=== PATIENT | male | born 1975 | race Caucasian/White ===

== ENCOUNTER 2023-08-22 19:47 | Emergency (ER) | payer OTHER, BC, SELFPAY ==
[2023-08-22 20:13] VITALS: BP 181/104; PULSE 81; RESP 15; TEMP 36.7; O2SAT 96; BMI 31.2
--- NOTE | 2023-08-22 21:21 | ED_ITS ---
HPI - Skin/Abscess/Foreign Bdy General Chief complaint: Skin/Abscess/Foreign Body Stated complaint: Infection R shoulder Time Seen by Provider: 08/22/23 21:10 History of Present Illness HPI narrative: This 48-year-old male comes in with a painful reddish area on his right anterior shoulder typical of a subcutaneous abscess. He states that this began to flare up in the past couple days. He works as a commissioned police officer and noted that his vest was irritating this area also. He does not report any fevers. There is not been any drainage from it. Related Data Home Medications Medication Instructions Recorded Confirmed buspirone 7.5 mg tablet 7.5 mg PO BID 08/22/23 08/22/23 chlorthalidone 25 mg tablet 25 mg PO DAILY 08/22/23 08/22/23 lisinopril 20 mg tablet 20 mg PO DAILY 08/22/23 08/22/23 sertraline 100 mg tablet mg PO 08/22/23 Allergies Allergy/AdvReac Type Severity Reaction Status Date / Time Penicillins AdvReac Verified 08/22/23 20:16 Review of Systems Status of ROS: Reports: 10 or more systems reviewed and unremarkable except as noted in History and below Narrative: Constitutional: No fevers, no weight gain or loss. Eyes: No discharge. No vision changes. HENT: No congestion, no sore throat, no ear pain. Cardiovascular: No chest pain, no palpitations. Respiratory: No shortness of breath, no wheezes, no cough. Gastrointestinal: No abdominal pain, no vomiting, no diarrhea. Genitourinary: No dysuria, no hematuria. Musculoskeletal: Normal range of motion. Skin: No rashes, no pruritis. Neurological: No dizziness, weakness, sensory change, speech change. Endo/Heme/Allergies: No bruising or bleeding. No polydipsia. Pysch: no suicidality, no anxiety, no insomnia. All other systems reviewed and are negative. Exam Narrative: Exam Narrative: Constitutional: Well-developed, well-nourished, no acute distress. HEENT: Normocephalic, atraumatic. Neck: Normal range of motion. Nontender. Supple. Heart: Intact distal pulses. Lungs: No chest discomfort. No wheezes, rhonchi, or rales. Abdomen: Nontender. Back: Normal range of motion. Extremities: Normal range of motion. No injury. Skin: Intact. No rash. Warm. No erythema or pallor. Area of erythema with swelling about 5 cm in diameter on the anterior aspect of his right clavicle. Neurologic: No altered sensation. No weakness. Alert and oriented. Psychiatric: No suicidality. No anxiety or depression. No insomnia. Nursing notes and vitals signs are reviewed. Const: Vital Signs, click to edit/add: Vital Signs - 24 hr 08/22/23 20:13 Temperature 98.0 F Pulse Rate [Pulse Oximeter] 81 Respiratory Rate 15 Blood Pressure [Ri ght Upper Arm] 181/104 H Pulse Oximetry 96 Oxygen Delivery Me thod Room Air Course Vital Signs Vital signs: Initial Vital Signs Temperature 98.0 F 08/22/23 20:13 Temperature Source Temporal Artery Scan 08/22/23 20:13 Pulse Rate 81 08/22/23 20:13 Respiratory Rate 15 08/22/23 20:13 Blood Pressure 181/104 H 08/22/23 20:13 Blood Pressure Mean 129 H 08/22/23 20:13 Blood Pressure Position Sitting 08/22/23 20:13 Pulse Oximetry 96 08/22/23 20:13 Oxygen Delivery Method Room Air 08/22/23 20:13 Vital Signs Temperature 98.0 F 08/22/23 20:13 Pulse Rate 81 08/22/23 20:13 Respiratory Rate 15 08/22/23 20:13 Blood Pressure 181/104 H 08/22/23 20:13 Pulse Oximetry 96 08/22/23 20:13 Oxygen Delivery Method Room Air 08/22/23 20:13 Temperature 98.0 F 08/22/23 20:13 Pulse Rate 81 08/22/23 20:13 Respiratory Rate 15 08/22/23 20:13 Blood Pressure 181/104 H 08/22/23 20:13 Pulse Oximetry 96 08/22/23 20:13 Oxygen Delivery Method Room Air 08/22/23 20:13 MDM - Skin/Abscess/Foreign Bdy MDM Narrative Medical decision making narrative: This patient comes in with a subcutaneous infection as described above. I did use bedside ultrasound to evaluate for a drainable abscess but no such images were obtained. I did prescribe Keflex from the [employer] machine. Discharge Plan Discharge Clinical Impression: Cellulitis Patient Disposition: Home, Self-Care Condition: Unchanged Additional Instructions: Take medication as prescribed. Use [id number] medicines also as needed and directed. Follow up with MD return if worsening. Prescriptions: No Action lisinopril 20 mg tablet 20 mg PO DAILY sertraline 100 mg tablet PO chlorthalidone 25 mg tablet 25 mg PO DAILY buspirone 7.5 mg tablet 7.5 mg PO BID Stand Alone Forms: [employer] Info Instructions
[2023-08-22 21:50] VITALS: BP 165/84; PULSE 79; RESP 18; TEMP 36.7; O2SAT 96
[2023-08-22 21:51] VITALS: BP 165/84; PULSE 79; RESP 18; TEMP 36.7
== END 2023-08-22 21:51 | disposition home or self-care (01) ==
LOC: ED 21:33
PROVIDERS: Emergency Provider Emergency Medicine Emergency Medical Services
DX: L03.113 Cellulitis of right upper limb (principal)
CPT/HCPCS: 99283; 99284

== ENCOUNTER 2023-12-26 11:36 | Emergency (ER) | payer OTHER, BC, SELFPAY ==
[2023-12-26 11:43] VITALS: BP 159/106; PULSE 67; RESP 20; TEMP 36.1; O2SAT 97; BMI 31.2
--- NOTE | 2023-12-26 12:00 | ED.FALL ---
HPI - Fall General Chief Complaint: Fall/Minor Trauma Stated Complaint: back pain Time Seen by Provider: 12/26/23 11:47 History of Present Illness HPI Narrative: This 48-year-old male comes in with back pain. He fell jumping from his pontoon to the dock 3 days ago and has severe pain in the mid to low back radiating to the left side. He did hit his head but did not have loss of consciousness. He went to [facility] 2 hours prior to arrival here and an x-ray there showed an L1 transverse process fracture. He saw physician's leasing assistant there who offered steroids for pain management. He states that he is not tolerating he has pain well. He does not report any radiating pain, numbness, or tingling. Related Data Home Medications ?Medication ?Instructions ?Recorded ?Confirmed buspirone 7.5 mg tablet 7.5 mg PO BID 08/22/23 12/26/23 chlorthalidone 25 mg tablet 25 mg PO DAILY 08/22/23 12/26/23 lisinopril 20 mg tablet 20 mg PO DAILY 08/22/23 12/26/23 sertraline 100 mg tablet 100 mg PO Q24H 08/22/23 12/26/23 Previous Rx's ?Medication ?Instructions ?Recorded cyclobenzaprine 10 mg tablet 10 mg PO TID #15 tabs 12/26/23 ketorolac 10 mg tablet 10 mg PO Q8H 5 days #15 tabs 12/26/23 oxycodone 5 mg capsule 5 mg PO Q6H PRN pain #30 caps 12/26/23 Allergies Allergy/AdvReac Type Severity Reaction Status Date / Time Penicillins AdvReac Verified 12/26/23 11:50 Review of Systems Status of ROS: Reports: 10 or more systems reviewed and unremarkable except as noted in History and below Narrative: Constitutional: No fevers, no weight gain or loss. Eyes: No discharge. No vision changes. HENT: No congestion, no sore throat, no ear pain. Cardiovascular: No chest pain, no palpitations. Respiratory: No shortness of breath, no wheezes, no cough. Gastrointestinal: No abdominal pain, no vomiting, no diarrhea. Genitourinary: No dysuria, no hematuria. Musculoskeletal: Back pain as described above with decreased range of motion due to pain. Skin: No rashes, no pruritis. Neurological: No dizziness, weakness, sensory change, speech change. Endo/Heme/Allergies: No bruising or bleeding. No polydipsia. Pysch: no suicidality, no anxiety, no insomnia. All other systems reviewed and are negative. PFSH [facility] Social History Smoking Status: Never smoker Second hand tobacco smoke exposure: No How often do you have a drink containing alcohol: never AUDIT-C Alcohol total score: 0 Non-prescribed substance use: denies use Exam Narrative: Exam Narrative: Constitutional: Well-developed, well-nourished, no acute distress. HEENT: Normocephalic, atraumatic. Neck: Normal range of motion. Nontender. Supple. Heart: Intact distal pulses. Lungs: No chest discomfort. No wheezes, rhonchi, or rales. Abdomen: Nontender. Back: Tenderness at L1 where previous x-ray showed a fracture of the transverse process on the left side. Extremities: Normal range of motion. No injury. Skin: Intact. No rash. Warm. No erythema or pallor. Neurologic: No altered sensation. No weakness. Alert and oriented. Psychiatric: No suicidality. No anxiety or depression. No insomnia. Nursing notes and vitals signs are reviewed. Const: Vital Signs, click to edit/add: Vital Signs - 24 hr 12/26/23 11:43 Temperature 96.9 F L Pulse Rate [Right Pulse Oximeter] 67 Respiratory Rate 20 Blood Pressure [Ri ght Upper Arm] 159/106 H Pulse Oximetry 97 Oxygen Delivery Me thod Room Air Course Vital Signs Vital signs: Initial Vital Signs Temperature 96.9 F L 12/26/23 11:43 Temperature Source Temporal Artery Scan 12/26/23 11:43 Pulse Rate 12/26/23 11:43 Pulse Rhythm Regular 12/26/23 11:43 Respiratory Rate 12/26/23 11:43 Blood Pressure 159/106 H 12/26/23 11:43 Blood Pressure Mean 123 H 12/26/23 11:43 Blood Pressure Position Sitting 12/26/23 11:43 Pulse Oximetry 97 12/26/23 11:43 Oxygen Delivery Method Room Air 12/26/23 11:43 Vital Signs Temperature 96.9 F L 12/26/23 11:43 Pulse Rate 67 12/26/23 11:43 Respiratory Rate 20 12/26/23 11:43 Blood Pressure 159/106 H 12/26/23 11:43 Pulse Oximetry 97 12/26/23 11:43 Oxygen Delivery Method Room Air 12/26/23 11:43 Temperature 96.9 F L 12/26/23 11:43 Pulse Rate 67 12/26/23 11:43 Respiratory Rate 20 12/26/23 11:43 Blood Pressure 159/106 H 12/26/23 11:43 Pulse Oximetry 97 12/26/23 11:43 Oxygen Delivery Method Room Air 12/26/23 11:43 MDM - Fall MDM Narrative Medical decision making narrative: This patient comes in essentially for pain relief as he was recently diagnosed with a fracture of the transverse process of L1 on the left side. He was offered a steroid which he declined. He states that he has been taking ibuprofen without any relief. He states that he has had Magnolia in the past and this did not seem to work very well for him. He is not normally on any pain medicines. The patient did receive an intramuscular injection of morphine 10 mg here. I did provide prescriptions for Toradol, Percocet, and Flexeril. He understands that he will need to follow-up with his primary physician for ongoing pain management. Patient does have a brace for his back. Discharge Plan Discharge Clinical Impression: Closed T1 fracture Patient Disposition: Home w/ Parent or Adult Condition: Unchanged Additional Instructions: Take medication as prescribed and needed. Activity as tolerated. Follow up with primary physician for ongoing pain management. Return if worsening. Prescriptions: New cyclobenzaprine 10 mg tablet 10 mg PO TID Qty: 15 2RF ketorolac 10 mg tablet 10 mg PO Q8H 5 Days Qty: 15 0RF oxycodone 5 mg capsule 5 mg PO Q6H PRN (Reason: pain) Qty: 30 0RF No Action lisinopril 20 mg tablet 20 mg PO DAILY sertraline 100 mg tablet 100 mg PO Q24H chlorthalidone 25 mg tablet 25 mg PO DAILY buspirone 7.5 mg tablet 7.5 mg PO BID Follow Up/Referrals: Provider,Not a Local [Primary Care Provider] - Stand Alone Forms: [employer] Info Instructions
[2023-12-26] MEDS: MORPHINE 10 MG/ML inj IM (12:24)
--- NOTE | 2023-12-26 14:47 | ED.NURSE ---
Pt's Gloria called due to issue filling rx at [facility] [address] in [place]. Contacted [facility] pharmacy, they were unable to fill rx for pt and unwilling to transfer the rx to a different [facility] store for the pt. Spoke with MD Terry and MD Terry sent the rx script to [facility] on in [place].
== END 2023-12-26 12:50 | disposition home or self-care (01) ==
LOC: ED 12:18
PROVIDERS: Emergency Provider Emergency Medicine Emergency Medical Services
DX: S32.019A Unspecified fracture of first lumbar vertebra, initial encounter for closed fracture (principal); W17.89XA Other fall from one level to another, initial encounter
CPT/HCPCS: 96372; 99283; 99284; J2270

== ENCOUNTER 2024-01-03 10:01 | Outpatient (CLI) | payer OTHER, BC, SELFPAY | END 2024-01-03 10:02 | disposition home or self-care (01) | LOC: LKVREF 10:05 | PROVIDERS: Visit Provider Family Medicine | DX: I10 Essential (primary) hypertension (principal) | CPT/HCPCS: 80053; 80061 ==

== ENCOUNTER 2024-01-11 10:26 | Outpatient (RCR) | payer OTHER, BC, SELFPAY | END 2024-04-19 09:50 | disposition home or self-care (01) | PROVIDERS: Visit Provider Family Medicine | DX: S32.009A Unspecified fracture of unspecified lumbar vertebra, initial encounter for closed fracture (principal); M54.50 Low back pain, unspecified; Z51.89 Encounter for other specified aftercare | CPT/HCPCS: 97110; 97161 ==

== ENCOUNTER 2024-02-03 11:37 | Outpatient (CLI) | payer OTHER, SELFPAY | END 2024-02-03 11:38 | disposition home or self-care (01) | LOC: NFLDREF 02-09 06:42 | PROVIDERS: PCP Family Medicine; Visit Provider Family Medicine | DX: Z00.00 Encounter for general adult medical examination without abnormal findings (principal); I10 Essential (primary) hypertension; E11.9 Type 2 diabetes mellitus without complications; E87.6 Hypokalemia | CPT/HCPCS: 82043; 82570 ==

== ENCOUNTER 2024-07-09 16:28 | Outpatient (CLI) | payer OTHER, SELFPAY | END 2024-07-09 16:29 | disposition home or self-care (01) | LOC: LKVREF 16:28 | PROVIDERS: PCP Family Medicine; Visit Provider Family Medicine | DX: Z12.5 Encounter for screening for malignant neoplasm of prostate (principal); Z13.220 Encounter for screening for lipoid disorders | CPT/HCPCS: 80061; G0103 ==

== ENCOUNTER 2024-07-13 09:15 | Outpatient (CLI) | payer OTHER, SELFPAY | END 2024-07-13 09:16 | disposition home or self-care (01) | LOC: NFLDREF 07-14 03:35 | PROVIDERS: PCP Family Medicine; Referring Provider Family Medicine; Visit Provider Family Medicine | DX: E87.6 Hypokalemia (principal) | CPT/HCPCS: 84132 ==

== ENCOUNTER 2024-07-21 14:23 | Emergency (ER) | payer OTHER, SELFPAY ==
--- OUTSIDE RECORDS SUMMARY | 2024-07-21 14:25 | XMS_ITS | Encounter Summary ---
Author Organization [facility] Address [address] [place] [id number] Care Team Providers Care Bread Slicer Machine Name Role Phone Doctor, None Primary Care Provider Unavailabl Tristin Booker MD Primary Care Provider Justine Sylvester PA-C Primary Care Pr ovider Justine Sylvester PA-C Unavailable Eron Sarmiento MD Primary Care Provider Eron Sarmiento MD Unavailable Justine Sylvester PA-C Unavailable Eron Sarmiento MD Unavailable [phone] Eron Sarmiento MD Unavailable Kamar Valente MD Unavailable [phone] Mike Crabtree MD Primary Care Provider + Justine Sylvester PA-C Unavailable Kamar Valente MD Unavailable [phone] Eron Sarmiento MD Unavailable Lalo Wiley MD Primary Care Provider Chiquita Oates MD Unavailable Encounter Details Date Type Department Care Team (Late st Contact Info) Description 03/29/2010 MyC Medical Advice [facility] [id number] [place] [phone] Tristin De La Fuente MD [address] [place] [phone] Social History Tobacco Use Types Packs/Day Years Used Date Smoking Tobacco: Never Alcohol Use Standard Drinks/Week Comments Yes 0 (1 standard drink = 0.6 oz pur e alcohol) socially Sex and Gender Information Value Date Recorded Sex Assigned at Not on file 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 Gender Identity Not on file Sexual Orientation Not on file Occupation Industry Job Start Date Job End Date Not on file Not on file Not on file Not on file documented as of this encounter Plan of Treatment Not on file documented as of this encounter Visit Diagnoses Not on filedocumented in this encounter Additional Health Concerns Infection Onset Date Last Indicated Resolved Time 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 12/11/2021 documented as of this encounter Care Teams Bread Slicer Machine Relationship Specialty Start Date End Date Doctor, Catherine, PCP - General 07/14/01 10/02/10 Tristin De La Fuente MD PCP - General Family Practice 10/03/10 11/01/13 Justine Sylvester PA-C [id number] [place] [address] PCP - General Physician Knitter Helper 11/02/13 07/06/18 Justine Sylvester PA-C [address] [place] [address] PCP - Assigned PCP 11/18/13 07/01/18 [place] [address] [place] [address] PCP - General Family Practice 07/07/18 09/17/19 Eron Sarmiento MD [address] [place] [address] PCP - Assigned PCP 07/02/18 08/01/18 Mike Crabtree MD [address] [id number] PCP - General Family Practice 09/18/19 12/07/21 Lalo Wiley MD [facility] [address] [place] [address] PCP - General Family Medicine 12/08/21 Justine Sylvester PA-C [address] [place] [address] Assigned PCP 11/18/13 07/01/18 Eron Sarmiento MD [address] [place] [place] [address] Assigned PCP 07/02/18 07/29/18 Eron Sarmiento MD [address] [place] [place] [address] Assigned PCP 07/30/18 07/14/19 Kamar Valente MD [address] [phone] Assigned PCP 07/15/19 12/29/19 Justine Sylvester PA-C [address] [place] [place] [address] Assigned PCP 12/30/19 03/08/20 Kamar Valente MD [address] [place] [phone] Assigned PCP 03/09/20 11/01/20 Eron Sarmiento MD [address] [place] [address] Assigned PCP 11/02/20 01/01/22 Chiquita Oates MD [facility], AGNIESZKA Rosen [address] [place] [address] Assigned Surgical Provider 12/26/21 06/22/23 documented as of this encounter
--- OUTSIDE RECORDS SUMMARY | 2024-07-21 14:25 | XMS_ITS | Clinical Summary ---
Author Organization [facility] Address [address] [place] [address] Care Team Providers Care Bow Tacker Name Role Phone Lalo Wiley MD Primary Care Provider [phone] Allergies Active Allergy Reactions Criticality Noted Date Comments Penicillins Swelling 05/02/2002 Throat swelling Medications Fexofenadine HCl (JOESPH PO) Take 180 mg by mouth daily Active chlorthalidone (HYGROTON) 25 MG tabletIndications :Essential hypertension with goal blood pressure less than 140/90 TAKE ONE TABLET BY MOUTH DAILY 90 tablet 0 Active lisinopril (ZESTRIL) 20 MG tabletIndications :Essential hypertension with goal blood pressure less than 140/90 TAKE ONE TABLET BY MOUTH DAILY 90 tablet 0 Active sertraline (ZOLOFT) 25 MG tabletIndications :Anxiety TAKE ONE TABLET BY MOUTH DAILY 90 tablet 0 Active buPROPion (WELLBUTRIN) 75 MG tabletIndications :Anxiety Take 2 tablets (150 mg) by mouth 2 times daily 120 tablet 0 Active acetaminophen (TYLENOL) 325 MG tabletIndications :MRSA infection Take 3 tablets (975 mg) by mouth 3 times daily 180 tablet 2 Active metFORMIN (GLUCOPHAGE) 500 MG tabletIndications :MRSA infection Take 1 tablet (500 mg) by mouth 2 times daily (with meals) 180 tablet 2 Active senna-docusate (SENOKOT-S/STEPAN LACE) 8.6-50 MG tabletIndications :MRSA infection Take 1 tablet by mouth 2 times daily 20 tablet 2 Active ketorolac (TORADOL) 10 MG tabletIndications :MRSA infection Take 1 tablet (10 mg) by mouth every 6 hours as needed for moderate pain 20 tablet 2 Active oxyCODONE (ROXICODONE) 5 MG tabletIndications :Abscess of arm, right Take 1-2 tablets (5-10 mg) by mouth every 6 hours as needed for pain 20 tablet 2 Active oxyCODONE (ROXICODONE) 5 MG tabletIndications :MRSA infection Take 1-2 tablets (5-10 mg) by mouth every 4 hours as needed for moderate to severe pain 12 tablet 2 Active Active Problems Problem Noted Date Diagnosed Date MRSA infection 12/12/2021 Hypokalemia 12/10/2021 Axillary abscess 12/10/2021 Hyperglycemia 12/10/2021 Cellulitis of right axilla 12/10/2021 Anxiety 03/07/2017 Hypertension goal BP (blood pressure) < 140/90 0 12/13/2012 Hyperlipidemia with target LDL less than 130 Overview (03/31/2015): Diagnosis updated by automated process. Provider to review and confirm. Impaired fasting glucose 03/24/2010 Resolved Problems Problem Noted Date Diagnosed Date Resolved Date HTN (hypertension) 02/27/2014 8 Cervical pain 04/26/2012 05/29/2012 Dyslipidemia 2010 10/03/2010 Immunizations Name Administration Dates Next Due Influenza (IIV3) PF 02/26/2017,04/14/2012 Influenza Vaccine >6 months,quad, PF 05/29/2018, 02/28/2013 Influenza Vaccine, 6+MO IM ( QUADRIVALENT W/PRESERVATIVES) 03/14/2015 TD,PF 7+ (Tenivac) 01/06/1998 TDAP Vaccine (Boostrix) 2010 Family History Medical History Relation Comments C.A.D. Father Family History Negative Father Hypertension Father Family History Negative Mother Cancer - colorectal No family hx of Diabetes No family hx of Prostate Cancer No family hx of Relation Status Comments Father Alive Mother Alive Social History Tobacco Use Types Packs/Day Years Used Date Smoking Tobacco: Never Smokeless Tobacco: Former Snuff Quit: 06/13/2009 Tobacco Cessation:Counseling Given: Yes Alcohol Use Standard Drinks/Week Comments Yes 0 (1 standard drink = 0.6 oz pur e alcohol) socially PHQ-2 Answer Date Recorded PHQ-2 Score 0 03/27/2018 Adolescent Education Answer Date Record ed Getting School Help Needed Not on file 03/05 Sex and Gender Information Value Date Recorded Sex Assigned at Not on file 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 Gender Identity Not on file Sexual Orientation Not on file Occupation Industry Job Start Date Job End Date Not on file Not on file Not on file Not on file Last Filed Vital Signs Vital Sign Reading Time Taken Comments Blood Pressure 146/98 12/30/2021 11:07 AM CDT Pulse 80 12/30/2021 11:07 AM CDT Temperature 36.9 C (98.4 F) 12/13/2021 2:47 PM CDT Respiratory Rate 16 12/30/2021 11:07 AM CDT Oxygen Saturation 96% 12/30/2021 11:07 AM CDT Inhaled Oxygen Concentration - - Weight 118.4 kg (261 lb) 12/30/2021 11:07 AM CDT Height 190.5 cm (6' 3) 12/30/2021 11:07 AM CDT Body Mass Index 32.62 12/30/2021 11:07 AM CDT Plan of Treatment Health Maintenance Due Date Last Done Comments ADVANCE CARE PLANNING 1976 ANNUAL REVIEW OF HM ORDERS 1976 CT COLONOGRAPHY 1976 FIT 1976 FLEX SIG 1976 sDNA (Cologuard) 1976 COLONOSCOPY 1986 COLORECTAL CANCER SCREENING 1986 HEPATITIS C SCREENING 1994 HEPATITIS B IMMUNIZATION (1 of 3 - 19+ 3-dose series) 1995 MICROALBUMIN 01/03/2018 01/03/2017, 05/2015, 01/20/2015, Additional history exists LIPID 03/27/2019 03/27/2018, 11/2016, 01/29/2016, Additional history exists YEARLY PREVENTIVE VISIT 03/11/2022 03/11/20 21, 03/27/2018, 01/03/2017, Additional history exists BMP 12/13/2022 12/13/2021, 11/27, 12/11/2021, Additional history exists COVID-19 Vaccine ( - season) 2024 INFLUENZA VACCINE (#1) 2024 9, 03/03/2019, 05/29/2018, Additional history exists PHQ-2 (once per calendar year) 2024 05/29/2018, 03/27/2018, 01/03/2017, Additional history exists GLUCOSE 12/13/2024 12/13/2021, 11/27, 12/13/2021, Additional history exists ZOSTER IMMUNIZATION (1 of 2) 2026 DTAP/TDAP/TD IMMUNIZATION (4 - Td or Tdap) 03/11/2031 03/11/2021, 2010, 01/06/1998, Additional history exists RSV VACCINE (1 - 1-dose 75+ series) 2051 HIV SCREENING Completed 03/27/2018 HPV IMMUNIZATION Aged Out No longer e ligible based on patient's age to complete this topic MENINGITIS IMMUNIZATION Aged Out No l onger eligible based on patient's age to complete this topic Pneumococcal Vaccine: Pediatrics (0 to 5 Years) and At-Risk Patients (6 to 49 Years) Aged Out No longer eligible based on patient's age to complete this topic RSV MONOCLONAL ANTIBODY Aged Out No l onger eligible based on patient's age to complete this topic Procedures Procedure Name Priority Date/Time Associated Diagnosis Comments GLUCOSE BY METER Routine 12/13/2021 12:3 1 PM CDT BASIC METABOLIC PANEL Routine 12/13/2021 6:57 AM CDT HIV ANTIGEN ANTIBODY COMBO Routine 03/27/2018 2:19 PM CDT Screening for HIV (human immunodeficiency virus) LIPID PROFILE Routine 03/27/2018 2:19 PM CDT Routine general medical examination at a health care facility ALBUMIN RANDOM URINE QUANTITATIVE Routine 01/03/2017 3:15 PM CDT Essential hypertension with goal blood pressure less than 140/90 from Last 3 Months or Most Recently Relevant to Health Maintenance Results * (ABNORMAL) Glucose by meter (12/13/2021 12:31 PM CDT) GLUCOSE BY METER POCT 211(H) 70 - 99 mg/dL 12/13/2021 12:39 PM CDT [facility] Blood, Capillary BLOOD SPECIMEN / Unknown 12/13/2021 12:31 PM CDT 12/13/2021 12:39 PM CDT us Italo Rossamna DO LAB - BEAKER POCT Final Result [facility] Acute Care Lab [address] Lab (1st floor, no room number) [place] [address], [facility] [phone] * (ABNORMAL) Basic metabolic panel (12/13/2021 6:57 AM CDT) Pathologist [facility] Sodium 138 133 - 144 mmol/L 12/13/2021 7:56 AM CDT LABORATORY Potassium 3.9 3.4 - 5.3 mmol/L 12/13/2021 7:56 AM CDT LABORATORY Chloride 102 94 - 109 mmol/L 12/13/2021 7:56 AM CDT LABORATORY Carbon Dioxide (CO2) 33(H) 20 - 32 mmol/L 12/13/2021 7:56 AM CDT LABORATORY Anion Gap 3 3 - 14 mmol/L 12/13/2021 7:56 AM CDT LABORATORY Urea Nitrogen 13 7 - 30 mg/dL 12/13/2021 7:56 AM CDT LABORATORY Creatinine 0.97 0.66 - 1.25 mg/dL 12/13/2021 7:56 AM CDT LABORATORY Calcium 8.9 8.5 - 10.1 mg/dL 12/13/2021 7:56 AM CDT LABORATORY Glucose 241(H) 70 - 99 mg/dL 12/13/2021 7:56 AM CDT LABORATORY GFR Estimate >90 >60 mL/min/1.7 3m2 12/13/2021 7:56 AM CDT LABORATORY Comment:Effective April 302020 eGFRcr in adults is calculated using the 2020 CKD-EPI creatinine equation which includes age and gender (Gonzalo et al., NEJM, DOI: 10.1056/MHHGlq2095333) Blood STRUCTURE OF LEFT UPPER LIMB / Unknown Venipuncture / Unknown 12/13/2021 6:57 AM CDT 12/13/2021 7:24 AM CDT us Yasemin White PA-C LAB - BLOOD ORDERABL ES Final Result [facility] Acute Care Lab [address] Lab (1st floor, no room number) [place] [address], [facility] [phone] * HIV Screening (03/27/2018 2:19 PM CDT) HIV Antigen Antibody Combo Nonreactive NR^Nonrea ctive 03/29/2018 8:57 AM CDT [facility] Comment:HIV-1 p24 Ag & HIV-1 /HIV-2 Ab Not Detected Blood specimen (specimen) 03/27/2018 2:19 PM CDT 03/27/2018 2:20 PM CDT us Eron Sarmiento MD LAB - BLOOD ORDERABLES Final Result [facility] [address] [place], [place] [id number] [place] [address] * (ABNORMAL) Lipid Profile (Chol, Trig, HDL, LDL calc) (03/27/2018 2:19 PM CDT) Cholesterol 160 <200 mg/dL 03/28/2018 1:54 PM CDT [facility] Triglycerides 158(H) <150 mg/dL 03/28/2018 1:54 PM CDT [facility] Comment: Borderline high: 150-199 mg/dl High: 200-499 mg/dl Very high: >499 mg/dl Fasting specimen HDL Cholesterol 46 >39 mg/dL 8 1:54 PM CDT [facility] LDL Cholesterol Calculated 82 <100 mg/dL 03/28/2018 1:54 PM CDT [facility] Comment:Desirable: <100 mg/d l Non HDL Cholesterol 114 <130 mg/dL 03/28/2018 1:54 PM CDT [facility] Blood specimen (specimen) 03/27/2018 2:19 PM CDT 03/27/2018 2:20 PM CDT us Eron Sarmiento MD LAB - BLOOD ORDERABLES Final Result [facility] [address] [place] [address] * Albumin Random Urine Quantitative (01/03/2017 3:15 PM CDT) Creatinine Urine 173 mg/dL [facility] Albumin Urine mg/L 7 mg/L [facility] Albumin Urine mg/g Cr 4.19 0 - 17 mg/g Cr [facility] Urine specimen (specimen) 01/03/2017 3:15 PM CDT 01/03/2017 3:20 PM CDT us Justine Sylvester PA-C LAB - URINE ORDE RABLES Final Result [facility] [address] [address], [facility] [phone] from Last 3 Months or Most Recently Relevant to Health Maintenance Additional Health Concerns Infection Onset Date Last Indicated 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 12/11/2021 Insurance [employer] [place] [place] [facility] [employer] [place] [facility] [employer] Advance Directives For more information, please contact: [phone] * Full Code (Latest Code Status on File) Date Activated Date Inactivated Comments 12/10/2021 6:49 PM 12/13/2021 5:19 PM All basic an d advanced life-sustaining interventions are performed as appropriate Question Answer Comments Code status determined by: Discussion with curly nt/ legal decision maker Care Teams Bow Tacker Relationship Specialty Start Date End Date Lalo Wiley MD [facility] [address] [address] PCP - General Family Medicine 12/08/21
--- OUTSIDE RECORDS SUMMARY | 2024-07-21 14:25 | XMS_ITS | Referral Summary ---
Author Organization [facility] Address [address] [place] [address] Care Team Providers Care Lawn Sprinkler Servicer Name Role Phone None, Md Unavailable Unavailable Allergies Active Allergy Reactions Criticality Noted Date Comments Penicillins Anaphylaxis 07/19/2017 Throat swelling Medications oxyCODONE, immediate release, (ROXICODONE) 5 mg oral tablet Take 5 mg by mouth every 6 (six) hours as needed. Active escitalopram oxalate (LEXAPRO) 20 mg oral tablet Take 20 mg by mouth once daily. Active chlorthalidone (HYGROTON) 25 mg oral tablet Take 25 mg by mouth once daily. Active lisinopril (PRINIVIL) 20 mg oral tablet Take 20 mg by mouth once daily. Active FEXOFENADINE HCL (JOESPH ORAL) Take by mouth. Active ranitidine (ZANTAC) 150 mg oral tablet Take 150 mg by mouth Twice a Day. Active oxyCODONE-aceta minophen (PERCOCET) 5-325 mg oral tablet Take 1-2 tablets by mouth every 4 (four) hours as needed for Pain. 30 tablet 07/25/2017 4:43 PM TIMBER HAND 07/25/2017 Active ondansetron (ZOFRAN) 4 mg oral ODT Take 1 tablet (4 mg) by mouth every 8 (eight) hours as needed for Nausea. 20 tablet 07/25/2017 4:44 PM TIMBER HAND 07/25/2017 Active Social History Tobacco Use Types Packs/Day Years Used Date Smoking Tobacco: Never Smokeless Tobacco: Former Sex and Gender Information Value Date Recorded Sex Assigned at Not on file Legal Sex Male 9:58 AM TIMBER HAND Gender Identity Not on file Sexual Orientation Not on file Last Filed Vital Signs Vital Sign Reading Time Taken Comments Blood Pressure 140/99 07/25/2017 5:00 PM TIMBER HAND Pulse 69 07/25/2017 5:00 PM TIMBER HAND Temperature 36.4 C (97.5 F) 07/25/2017 5:00 PM TIMBER HAND Respiratory Rate 16 07/25/2017 5:00 PM TIMBER HAND Oxygen Saturation 96% 07/25/2017 5:00 PM TIMBER HAND Inhaled Oxygen Concentration - - Weight 109.8 kg (242 lb) 07/19/2017 12:27 PM TIMBER HAND Height 188 cm (6' 2) 07/19/2017 12:27 PM TIMBER HAND Body Mass Index 31.07 07/19/2017 12:27 PM TIMBER HAND Plan of Treatment Not on file Medical Devices Implanted Type Area A R Specialist Device Identifier Shelf Expiration Date Model / Serial / Lot Suture [place], Biocomposite Suturetak Implanted:Qty: 4 on 07/25/2017 by Gamal Aguayo MD at [facility] ORS Screw/An chor Left: Shoulder [employer] 03/29/2018 [id number] / / [id number] Insurance [employer] OPEN ACCESS/CHOICE [facility] [place]IE [id number] GENERIC Care Teams Lawn Sprinkler Servicer Relationship Specialty Start Date End Date NoneMd PCP - Primary Care Clinic 07/25/17
--- OUTSIDE RECORDS SUMMARY | 2024-07-21 14:25 | XMS_ITS | Encounter Summary ---
Author Organization [facility] Address [address] [place] [address] Care Team Providers Care Machine Sizer Name Role Phone Justine Sylvester PA-C Primary Care Pr ovider Justine Sylvester PA-C Unavailable Eron Sarmiento MD Primary Care Provider Eron Sarmiento MD Unavailable [phone] Justine Sylvester PA-C Unavailable Eron Sarmiento MD Unavailable [phone] Eron Sarmiento MD Unavailable [phone] Kamar Valente MD Unavailable [phone] Mike Crabtree MD Primary Care Provider + Justine Sylvester PA-C Unavailable Kamar Valente MD Unavailable [phone] TrylizzettetaEron stallings MD Unavailable Lalo Wiley MD Primary Care Provider Chiquita Oates MD Unavailable [phone] Encounter Details Date Type Department Care Team (Late st Contact Info) Description 05/07/2018 MyC Medical Advice [facility] [id number] [place] [phone] Justine Sylvester PA-C [address] [place] [address] Social History Tobacco Use Types Packs/Day Years Used Date Smoking Tobacco: Never Smokeless Tobacco: Former Snuff Quit: 06/13/2009 Alcohol Use Standard Drinks/Week Comments Yes 0 (1 standard drink = 0.6 oz pur e alcohol) socially PHQ-2 Answer Date Recorded PHQ-2 Score 0 03/27/2018 Sex and Gender Information Value Date Recorded Sex Assigned at Not on file Legal Sex Male 3:34 AM DISBURSING AGENT Gender Identity Not on file Sexual Orientation Not on file Occupation Industry Job Start Date Job End Date Not on file Not on file Not on file Not on file documented as of this encounter Miscellaneous Notes * Telephone Encounter - Lizy Mai RN - 05/07/2018 3:17 AM DISBURSING AGENT Advised E-visit to discuss symptoms/concerns with PCP. 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 12/11/2021 documented as of this encounter Care Teams Machine Sizer Relationship Specialty Start Date End Date Justine Sylvester PA-C [address] [place], [place] [id number] PCP - General Physician [employer] Wafers Saw Operator 11/02/13 07/06/18 Justine Sylvester PA-C [address] [place] [address] PCP - Assigned PCP 11/18/13 07/01/18 [place] [address] [place] [address] PCP - General Family Practice 07/07/18 09/17/19 Eron Sarmiento MD [address] [place] [address] PCP - Assigned PCP 07/02/18 08/01/18 Mike Crabtree MD [address] [place] [address] PCP - General Family Practice 09/18/19 12/07/[address] [facility] [address] [place] [address] PCP - General Family Medicine 12/08/21 Justine Sylvester PA-C [address] [place] [address] Assigned PCP 11/18/13 07/01/18 Eron Sarmiento MD [address] [place] [address] Assigned PCP 07/02/18 07/29/18 Eron Sarmiento MD [address] [place] [address] Assigned PCP 07/30/18 07/14/19 Kamar Valente MD [address] [place] [phone] Assigned PCP 07/15/19 12/29/19 Justine Sylvester PA-C [address] [place] [address] Assigned PCP 12/30/19 03/08/20 Kamar Valente MD [address] [place] [phone] Assigned PCP 03/09/20 11/01/20 Eron Sarmiento MD [address] [place] [address] Assigned PCP 11/02/20 01/01/22 Chiquita Oates MD [facility], AGNIESZKA [address] [address] Assigned Surgical Provider 12/26/21 06/22/23 documented as of this encounter
--- OUTSIDE RECORDS SUMMARY | 2024-07-21 14:25 | XMS_ITS | Encounter Summary ---
Author Organization [facility] Address [address] [place] [address]. [place] [address] Care Team Providers Care Oil Boiler Name Role Phone Eron Sarmiento MD Primary Care Provider [phone] Eron Sarmiento MD Unavailable [phone] Kamar Valente MD Unavailable [phone] Mike Crabtree MD Primary Care Provider + Justine Sylvester PA-C Unavailable Kamar Valente MD Unavailable [phone] TrygsEron venegas MD Unavailable Lalo Wiley MD Primary Care Provider + [phone] Chiquita Oates MD Unavailable [phone] Reason for Visit * Reason Comments Medication Refill Encounter Details Date Type Department Care Team (Late st Contact Info) Description [facility] [address] [address] Eron Sarmiento MD [address] [place] [address] Medication Refill Social History Tobacco Use Types Packs/Day Years Used Date Smoking Tobacco: Never Smokeless Tobacco: Former Snuff Quit: 06/13/2009 Alcohol Use Standard Drinks/Week Comments Yes 0 (1 standard drink = 0.6 oz pur e alcohol) socially PHQ-2 Answer Date Recorded PHQ-2 Score 0 03/27/2018 Sex and Gender Information Value Date Recorded Sex Assigned at Not on file Legal Sex Male 3:34 AM BUILDING DISMANTLER Gender Identity Not on file Sexual Orientation Not on file Occupation Industry Job Start Date Job End Date Not on file Not on file Not on file Not on file documented as of this encounter Plan of Treatment Not on file documented as of this encounter Visit Diagnoses Diagnosis Anxiety Anxiety state, unspecified documented in this encounter Additional Health Concerns Infection Onset Date Last Indicated Resolved Time 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 12/11/2021 Assessment Noted Time PHQ-9 Depression Total Score: 4 05/29/20 18 3:20 PM BUILDING DISMANTLER documented as of this encounter Care Teams Oil Boiler Relationship Specialty Start Date End Date Eron Sarmiento MD PCP - General Family Practice 07/07/18 09/17/19 Mike Crabtree MD [address] [id number] PCP - General Family Practice 09/18/19 12/07/21 Lalo Wiley MD [facility] [address] [address] PCP - General Family Medicine 12/08/21 Eron Sarmiento MD [address] [place] [address] Assigned PCP 07/30/18 07/14/19 Kamar Valente MD [address] [phone] Assigned PCP 07/15/19 12/29/19 Justine Sylvester PA-C [address] [place] [address] Assigned PCP 12/30/19 03/08/20 Kamar Valente MD [address] [place] [phone] Assigned PCP 03/09/20 11/01/20 Eron Sarmiento MD [address] [place] [address] Assigned PCP 11/02/20 01/01/22 Chiquita Oates MD [facility], [facility] [address] [facility] [address] [place] [address] Assigned Surgical Provider 12/26/21 documented as of this encounter
--- OUTSIDE RECORDS SUMMARY | 2024-07-21 14:25 | XMS_ITS | Clinical Summary ---
[facility] Address [address] [address] Care Team Providers Care Manager Php Name Role Phone Lalo Wiley MD Primary Care Provider [phone] Source Comments You are receiving this document as you are listed as the primary care provider,follow-up provider, or the patient has been referred to you for consultation.This is in compliance with the Medicare and[facility] EHR Incentive Program,which states Providers who transition their patient to another setting of careor provider of care or refers their patient to another provider of care shouldprovide summary care record for each transition of care or referral. [employer] Allergies Active Allergy Reactions Criticality Noted Date Comments Penicillins Respiratory Distress High 12/13/2007 PN: LW Reaction: RESPIRATORY DISTRESS Medications lisinopril (ZESTRIL) 20 MG tabletIndications :Essential hypertension (HRC) TAKE 2 TABLETS BY MOUTH DAILY 20 Tablet 3 Active chlorthalidone (HYGROTON) 25 MG tabletIndications :Essential hypertension (HRC) Take 1 Tablet (25 mg) by mouth daily. 90 Tablet 3 3 Active lisinopril (ZESTRIL) 20 MG tabletIndications :Essential hypertension (HRC) Take 1 Tablet (20 mg) by mouth daily. 90 Tablet 3 3 Active sertraline (ZOLOFT) 100 MG tabletIndications :Anxiety (HRC) Take 2 Tablets (200 mg) by mouth daily. 180 Tablet 3 3 Active busPIRone (BUSPAR) 7.5 MG tabletIndications :Anxiety (HRC) Take 1 Tablet (7.5 mg) by mouth two times a day. 180 Tablet 3 3 Active Active Problems Problem Noted Date Diagnosed Date Moderate obstructive sleep apnea 03/05/2022 Overview (03/09/2022): Setting: Auto 10/11 Supplied by: Ceasar PSG done: 01-28-22 HST RDI/JOHNNY 23.9 Lowest O2 Sat: 83% Assessment & Plan (03/05/2022 9:32 AM CDT): HST 01/28/22 RDI 24 Lowest 02 83% APAP 10/11 Ceasar Essential hypertension 03/12/2021 Anxiety 03/12/2021 Recurrent major depressive disorder, in full rem ission 03/12/2021 Chronic pain of right knee 03/12/2021 Encounters Date Type Department Care Team Description 06/06/2024 [address]phone [facility] [place] [address] Vascular Surgery [address] [place] [address] Africa Jackson Dx Accuracy c Gap Registry Call 1 from Last 3 Months Immunizations Immunization Administration Dates Next Due DT Ped 01/12/1991 Flu Vac (3+ yrs) 02/26/2017,04/14/2012, 1 Fluzone Qiv Multidose Vial 0 .25 (6-35 Mos) 05/12/2019,03/03/2019,03/14/2015 Influenza IIV4 (Quadrivalent ) 0.5mL (40335) 05/29/2018,02/26/2017,03/06/2014,2012 MMR 12/20/1989 Td 01/06/1998 Tdap 03/11/2021,2010 Social History Tobacco Use Types Packs/Day Years Used Date Smoking Tobacco: Never Smokeless Tobacco: Never Alcohol Use Standard Drinks/Week Comments Yes 0 (1 standard drink = 0.6 oz pur e alcohol) 2 twice weekly PHQ-2 Answer Date Recorded PHQ-2 Score 1 07/21/2021 Financial Resource Strain Answer Date R ecorded Is it hard for you to pay fo r the very basics like food, housing, medical care or heating? No 02/01/2023 Food Insecurity Answer Date Recorded Does your food run out before you have the money to buy more? No 02/01/2023 Transportation Needs Answer Date Record ed Does a lack of transportatio n keep you from your medical appointments or from getting your medications? No 023 Sex and Gender Information Value Date Recorded Sex Assigned at Not on file Legal Sex Male 6:53 AM CDT Gender Identity Not on file Sexual Orientation Not on file Last Filed Vital Signs Vital Sign Reading Time Taken Comments Blood Pressure 137/89 02/01/2023 10:31 AM CDT Pulse 85 02/01/2023 10:31 AM CDT Temperature 36.8 C (98.3 F) 12/09/2021 4:53 PM CDT Respiratory Rate 20 12/09/2021 4:53 PM CDT Oxygen Saturation 95% 12/09/2021 4:53 PM CDT Inhaled Oxygen Concentration - - Weight 120.9 kg (266 lb 9.6 oz) 023 10:31 AM CDT Height 188 cm (6' 2) 02/01/2023 10:31 AM CDT Body Mass Index 34.23 02/01/2023 10:31 AM CDT Plan of Treatment Health Maintenance Due Date Last Done Comments Colon Cancer Screening Plan Due 1976 Hep C Screening (Preventive Services) 1976 HIV Screening (Preventive Services) 1992 HepB (1) 1995 COVID-19 Vaccine ( season) 2024 Influenza (#1) 2024 05/12/2019, 10/09/2018, 05/29/2018, Additional history exists Adult Preventive Visit 02/02/2024 02/01/2023, 2020 Cholesterol 03/11/2026 03/11/2021, 02/05/1999 Zoster/Shingles (1 of 2) 2026 DTaP/Tdap/Td (5 - Tdap) 03/11/2031 03/11/20 21, 2010, 01/06/1998, Additional history exists HepA Aged Out No longer eligi ble based on patient's age to complete this topic Hib Aged Out No longer eligi ble based on patient's age to complete this topic IPV (Polio) Aged Out No longer eligi ble based on patient's age to complete this topic MCV4 Aged Out No longer eligi ble based on patient's age to complete this topic Meningococcal B Aged Out No longer el igible based on patient's age to complete this topic Pneumococcal Aged Out No longer eligi ble based on patient's age to complete this topic Procedures Procedure Name Priority Date/Time Associated Diagnosis Comments LIPID PANEL & DIRECT LDL (IF NEEDED) Routine 03/11/2021 3:39 PM CDT Routine health maintenance from Last 3 Months or Most Recently Relevant to Health Maintenance Results * (ABNORMAL) Lipid Panel - LDLD If Trig High (03/11/2021 3:39 PM CDT) Cholesterol 189 0 - 199 mg/dL 03/11/2021 4:59 PM CDT [facility] Triglyceride 322(H) <=149 mg/dL 03/11/2021 4:59 PM CDT [facility] HDL Cholesterol 42 >=40 mg/dL 03/11/2021 4:59 PM CDT [facility] LDL, Calculated 83 <130 mg/dL 03/11/2021 4:59 PM CDT [facility] Non HDL Chol, Calculated 147 <=159 mg/dL 03/11/2021 4:59 PM CDT [facility] Cholesterol/HDL Ratio 4.5 03/11/2021 4:59 PM CDT [facility] Hours Fasting Unknown 03/11/2021 4:59 PM T [facility] Blood Venipuncture / Unknown 03/11/2021 3:39 PM CDT 03/11/2021 3:39 PM CDT us Lalo Wiley MD LAB_1 Final Resu lt [facility] [address] [place] [address], [facility] [place] [phone] from Last 3 Months or Most Recently Relevant to Health Maintenance Additional Health Concerns Infection Onset Date Last Indicated MRSA Comment: 12/09/21 wound (+) 12/09/2021 12/09/2021 Insurance HP FULLY INSURED FULLY INSURED BCBS [employer] BLUE LINK [employer] F[employer] INSURED Care Teams Manager Php Relationship Specialty [place] [address] [address] [address] PCP - General Family Practice 11/08/19
--- OUTSIDE RECORDS SUMMARY | 2024-07-21 14:25 | XMS_ITS | Clinical Summary ---
Author Organization [facility] Address [address] [place] [address] Care Team Providers Care Application Security Consultant Name Role Phone None, Md Unavailable Unavailable [...] for Pain. 30 tablet 07/25/2017 4:43 PM CAFE OR RESTAURANT MANAGER 07/25/2017 Active ondansetron (ZOFRAN) 4 mg oral ODT Take 1 tablet (4 mg) by mouth every 8 (eight) hours as needed for Nausea. 20 tablet 07/25/2017 4:44 PM CAFE OR RESTAURANT MANAGER 07/25/2017 Active Social History Tobacco Use Types Packs/Day Years Used Date Smoking Tobacco: Never Smokeless Tobacco: Former Sex and Gender Information Value Date Recorded Sex Assigned at Not on file Legal Sex Male 9:58 AM CAFE OR RESTAURANT MANAGER Gender Identity Not on file Sexual Orientation Not on file Last Filed Vital Signs Vital Sign Reading Time Taken Comments Blood Pressure 140/99 07/25/2017 5:00 PM CAFE OR RESTAURANT MANAGER Pulse 69 07/25/2017 5:00 PM CAFE OR RESTAURANT MANAGER Temperature 36.4 C (97.5 F) 07/25/2017 5:00 PM CAFE OR RESTAURANT MANAGER Respiratory Rate 16 07/25/2017 5:00 PM CAFE OR RESTAURANT MANAGER Oxygen Saturation 96% 07/25/2017 5:00 PM CAFE OR RESTAURANT MANAGER Inhaled Oxygen Concentration - - Weight 109.8 kg (242 lb) 07/19/2017 12:27 PM CAFE OR RESTAURANT MANAGER Height 188 cm (6' 2) 07/19/2017 12:27 PM CAFE OR RESTAURANT MANAGER Body Mass Index 31.07 07/19/2017 12:27 PM CAFE OR RESTAURANT MANAGER Plan of Treatment Health Maintenance Due Date Last Done Comments Colonoscopy 1976 Hepatitis C Screening 1976 Lipid Screening 1976 Anxiety Screening (LEÓN-2) 1977 Depression Assessment (PHQ-2) 1977 Adult Tetanus Booster 1995 COVID-19 Vaccine (2023-2 5 season) 2024 Influenza Vaccine (#1) 2024 RSV Vaccines (1 - 1-dose 75+ series) 2051 Pneumococcal Vaccine Aged Out No long er eligible based on patient's age to complete this topic Medical Devices Implanted Type Area Compliance Advisor Device Identifier Shelf Expiration Date Model / Serial / Lot Suture [place], Biocomposite Suturetak Implanted:Qty: 4 on 07/25/2017 by Gamal Aguayo MD at [facility] [place] [facility] Screw/An chor Left: Shoulder [employer] 03/29/2018 [id number] / / [id number] Insurance [employer] OPEN ACCESS/CHOICE GENERIC Care Teams Application Security Consultant Relationship Specialty Start Date End Date Md Catherine PCP - Primary Care Clinic 07/25/17
--- OUTSIDE RECORDS SUMMARY | 2024-07-21 14:25 | XMS_ITS | Encounter Summary ---
Author Organization [facility] Address [address] [place] [address] Care Team Providers Care Bus Driver Name Role Phone Eron Sarmiento MD Primary Care Provider [phone] Eron Sarmiento MD Unavailable [phone] Kamar Valente MD Unavailable [phone] Mike Crabtree MD Primary Care Provider + Justine Sylvester PA-C Unavailable Kamar Valente MD Unavailable [phone] TryEron kurtz MD Unavailable [phone] Lalo Wiley MD Primary Care Provider + [phone] Chiquita Oates MD Unavailable [phone] Encounter Details Date Type Department Care Team (Late st Contact Info) Description 12/28/2018 MyC Medical Advice [place] [id number] [place] [address] Eron Sarmiento MD [address] [place] [address] Social History Tobacco Use Types Packs/Day Years Used Date Smoking Tobacco: Never Smokeless Tobacco: Former Snuff Quit: 06/13/2009 Alcohol Use Standard Drinks/Week Comments Yes 0 (1 standard drink = 0.6 oz pur e alcohol) socially PHQ-2 Answer Date Recorded PHQ-2 Score 0 03/27/2018 Sex and Gender Information Value Date Recorded Sex Assigned at Not on file Legal Sex Male 3:34 AM APPAREL STOCK CHECKER Gender Identity Not on file Sexual Orientation [...] Total Score: 4 05/29/20 18 3:20 PM APPAREL STOCK CHECKER documented as of this encounter Care Teams Bus Driver Relationship Specialty Start Date End Date Eron Sarmiento MD PCP - General Family Practice 07/07/18 09/17/19 Mike Crabtree MD [address] [address] PCP - General Family Practice 09/18/19 12/07/21 Lalo Wiley MD [facility] [address] [address] PCP - General Family Medicine 12/08/21 Eron Sarmiento MD [address] [place] [address] Assigned PCP 07/30/18 07/14/19 Kamar Valente MD [address] [address] Assigned PCP 07/15/19 12/29/19 Justine Sylvester PA-C [address] [place] [address] Assigned PCP 12/30/19 03/08/20 Kamar Valente MD [address] [place] [phone] Assigned PCP 03/09/20 11/01/20 Eron Sarmiento MD [address] [place] [address] Assigned PCP 11/02/20 01/01/22 Chiquita Oates MD [facility] [address] [place] [address] Assigned Surgical Provider 12/26/21 documented as of this encounter
--- OUTSIDE RECORDS SUMMARY | 2024-07-21 14:25 | XMS_ITS | Encounter Summary ---
Author Organization [facility] Address [address] [place] [address] Care Team Providers Care Navigation Officer Name Role Phone Justine Sylvester PA-C Primary Care Pr ovider Justine Sylvester PA-C Unavailable Eron Sarmiento MD Primary Care Provider Eron Sarmiento MD Unavailable [phone] Justine Sylvester PA-C Unavailable Eron Sarmiento MD Unavailable [phone] Eron Sarmiento MD Unavailable [phone] Kamar Valente MD Unavailable +[phone] Mike Crabtree MD Primary Care Provider + Justine Sylvester PA-C Unavailable Kamar Valente MD Unavailable + [phone] TrylizzettetaEron stallings MD Unavailable [phone] Lalo Wiley MD Primary Care Provider Chiquita Oates MD Unavailable +[phone] Encounter Details Date Type Department Care Team (Late st Contact Info) Description 05/10/2018 MyC Medical Advice [facility] [id number] [place] [address] Michelle Hurtado APRN [employer] [address] [place] [address] [address] [address] Social History Tobacco Use Types Packs/Day Years Used Date Smoking Tobacco: Never Smokeless Tobacco: Former Snuff Quit: 06/13/2009 Alcohol Use Standard Drinks/Week Comments Yes 0 (1 standard drink = 0.6 oz pur e alcohol) socially PHQ-2 Answer Date Recorded PHQ-2 Score 0 03/27/2018 Sex and Gender Information Value Date Recorded Sex Assigned at Not on file Legal Sex Male 3:34 AM OXYACETYLENE BURNER Gender Identity Not on file Sexual Orientation [...] documented as of this encounter Care Teams Navigation Officer Relationship Specialty Start Date End Date Justine Sylvester PA-C [address] [place] [address] PCP - General Physician Gravity Prospecting Observer 11/02/13 07/06/18 Justine Sylvester PA-C [address] [place] [address] PCP - Assigned PCP 11/18/13 07/01/18 [place] [address] [place] [address] PCP - General Family Practice 07/07/18 09/17/19 Eron Sarmiento MD [address] [place] [address] PCP - Assigned PCP 07/02/18 08/01/18 Mike Crabtree MD [address] [place] [id number] PCP - General Family Practice 09/18/19 12/07/21 Lalo Wiley MD [facility] [address] [place] [address] PCP - General Family Medicine 12/08/21 Justine Sylvester PA-C [address] [place] [address] Assigned PCP 11/18/13 07/01/18 Eron Sarmiento MD [address] [place] [address] Assigned PCP 07/02/18 07/29/18 Eron Sarmiento MD [address] [place] [address] Assigned PCP 07/30/18 07/14/19 Kamar Valente MD [address] [phone] Assigned PCP 07/15/19 12/29/19 Justine Sylvester PA-C [address] [address] Assigned PCP 12/30/19 03/08/20 Kamar Valente MD [address] [place] [address] Assigned PCP 03/09/20 11/01/20 Eron Sarmiento MD [address] [facility] [place] [address] Assigned PCP 11/02/20 01/01/22 Chiquita Oates MD [facility] [address] [place] [address] Assigned Surgical Provider 12/26/21 06/22/23 documented as of this encounter
--- OUTSIDE RECORDS SUMMARY | 2024-07-21 14:25 | XMS_ITS | Encounter Summary ---
Author Organization [employer] Address [address] [place] [address] Care Team Providers Care Business Management Associate Name Role Phone Eron Sarmiento MD Primary Care Provider + [phone] Eron Sarmiento MD Unavailable [phone] Kamar Valente MD Unavailable [phone] Mike Crabtree MD Primary Care Provider + Justine Sylvester PA-C Unavailable Kamar Valente MD Unavailable [phone] TrygsEron venegas MD Unavailable [phone] Lalo Wiley MD Primary Care Provider + [phone] Chiquita Oates MD Unavailable [phone] Reason for Visit * Reason Comments Medication Refill sertraline (ZOLOFT Encounter Details Date Type Department Care Team (Late st Contact Info) Description 11/10/[address] [address] Eron Sarmiento MD [address] [place] [address] Medication Refill (sertraline (ZOLOFT) Social History Tobacco Use Types Packs/Day Years Used Date Smoking Tobacco: Never Smokeless Tobacco: Former Snuff Quit: 06/13/2009 Alcohol Use Standard Drinks/Week Comments Yes 0 (1 standard drink = 0.6 oz pur e alcohol) socially PHQ-2 Answer Date Recorded PHQ-2 Score 0 03/27/2018 Sex and Gender Information Value Date Recorded Sex Assigned at Not on file Legal 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 Gender Identity Not on file Sexual Orientation Not on file Occupation Industry Job Start Date Job End Date Not on file Not on file Not on file Not on file documented as of this encounter Miscellaneous Notes * Telephone Encounter - Ivana Tapia CMA - 11/10/2018 10:37 AM CDT sertraline (ZOLOFT BLADE 07/13/18 last PHQ9/LEÓN 05/29/18 PHQ-9 SCORE 05/29/2018 PHQ-9 Total Score 4 documented in this encounter Plan of Treatment Not on file documented as of this encounter Visit Diagnoses Diagnosis Anxiety Anxiety state, unspecified documented in this encounter Additional Health Concerns Infection Onset Date Last Indicated Resolved Time 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 12/11/2021 Assessment Noted Time PHQ-9 Depression Total Score: 4 05/29/20 18 3:20 PM LOW RAW SUGAR CUTTER documented as of this encounter Care Teams Business Management Associate Relationship Specialty Start Date End Date Eron Sarmiento MD PCP - General Family Practice 07/07/18 09/17/19 Mike Crabtree MD [address] [address] PCP - General Family Practice 09/18/19 12/07/21 Lalo Wiley MD [facility] [address] [address] PCP - General Family Medicine 12/08/21 Eron Sarmiento MD [address] [place] [place] [address] Assigned PCP 07/30/18 07/14/19 Kamar Valente MD [address] [place] [phone] Assigned PCP 07/15/19 12/29/19 Justine Sylvester PA-C [address] [place] [address] Assigned PCP 12/30/19 03/08/20 Kamar Valente MD [address] [facility] [place] [phone] Assigned PCP 03/09/20 11/01/20 Eron Sarmiento MD [address] [place] [place] [address] Assigned PCP 11/02/20 01/01/22 Chiquita Oates MD [facility] [address] [address] Assigned Surgical Provider 12/26/21 documented as of this encounter
--- OUTSIDE RECORDS SUMMARY | 2024-07-21 14:25 | XMS_ITS | Encounter Summary ---
Author Organization [facility] Address [address] [place] [address] Care Team Providers Care Desktop Support Manager Name Role Phone Justine Sylvester PA-C Primary Care Pr ovider Justine Sylvester PA-C Unavailable Eorn Sarmiento MD Primary Care Provider Eron Sarmiento MD Unavailable [phone] Justine Sylvester PA-C Unavailable Eron Sarmiento MD Unavailable [phone] Eron Sarmiento MD Unavailable [phone] Kamar Valente MD Unavailable [phone] Mike Crabtree MD Primary Care Provider + Justine Sylvester PA-C Unavailable Kamar Valente MD Unavailable + [phone] TrylizzettetaEron stallings MD Unavailable Lalo Wiley MD Primary Care Provider Chiquita Oates MD Unavailable [phone] Encounter Details Date Type Department Care Team (Late st Contact Info) Description 01/03/2018 MyC Medical Advice [facility] [id number] [place] [phone] Michelle Hurtado APRN METAL FABRICATION SUPERVISOR [address] [place] [address] [address] [place] [address] Social History Tobacco Use Types Packs/Day Years Used Date Smoking Tobacco: Never Smokeless Tobacco: Former Snuff Quit: 06/13/2009 Alcohol Use Standard Drinks/Week Comments Yes 0 (1 standard drink = 0.6 oz pur e alcohol) socially Sex and Gender Information Value Date Recorded Sex Assigned at Not on file 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 Gender Identity Not on file Sexual [...] documented as of this encounter Care Teams Desktop Support Manager Relationship Specialty Start Date End Date Justine Sylvester PA-C [address] [place] [address] PCP - General Physician Music Theory Professor 11/02/13 07/06/18 Justine Sylvester PA-C [address] [place] [address] PCP - Assigned PCP 11/18/13 07/01/18 [place] [address] [place] [address] PCP - General Family Practice 07/07/18 09/17/19 Eron Sarmiento MD [address] [place] [address] PCP - Assigned PCP 07/02/18 08/01/18 Mike Crabtree MD [address] [place] [address] PCP - General Family Practice 09/18/19 12/07/21 Lalo Wiley MD [facility] [address] [place] [address] PCP - General Family Medicine 12/08/21 Justine Sylvester PA-C [address] [place] [address] Assigned PCP 11/18/13 07/01/18 Eron Sarmiento MD [address] [place] [address] Assigned PCP 07/02/18 07/29/18 Eron Sarmiento MD [address] [place] [address] Assigned PCP 07/30/18 07/14/19 Kamar Valente MD [address] [phone] Assigned PCP 07/15/19 12/29/19 Justine Sylvester PA-C [address] [place] [id number] Assigned PCP 12/30/19 03/08/20 Kamar Valente MD [address] [place] [id number] Assigned PCP 03/09/20 11/01/20 Eron Sarmiento MD [address] [place] [address] Assigned PCP 11/02/20 01/01/22 Chiquita Oates MD [facility] [address] [place] [address] Assigned Surgical Provider 12/26/21 06/22/23 documented as of this encounter
--- OUTSIDE RECORDS SUMMARY | 2024-07-21 14:25 | XMS_ITS | Encounter Summary ---
Author Organization [facility] Address [address] [address] Care Team Providers Care Electrical Instrument Repairer Name Role Phone Lalo Wiley MD Primary Care Provider [phone] Reason for Visit * Reason Comments Dx Accuracy Hrc Gap Registry Call 1 Encounter Details Date Type Department Care Team (Late st Contact Info) Description 06/06/2024 Telephone [facility] [address] Vascular Surgery [address] [place] [address] Africa Jackson Dx Accuracy Hrc Gap Registry Call 1 Social History Tobacco Use Types Packs/Day Years [...] on file Sexual Orientation Not on file documented as of this encounter Nursing Notes * Africa Jackson - 06/06/2024 9:51 AM CST Contacted patient to schedule as they have not been seen in >12 months and <24 months and hascare gaps identified on the care gap registry. Outcome of the call:1st Call Attempt N PLUMBER documented in this encounter Plan of Treatment Not on file documented as of this encounter Visit Diagnoses Not on filedocumented in this encounter Additional Health Concerns Infection Onset Date Last Indicated Resolved Time MRSA Comment: 12/09/21 wound (+) 12/09/2021 12/09/2021 documented as of this encounter Care Teams Electrical Instrument Repairer Relationship Specialty [place] [address] [address] PCP - General Family Practice 11/08/19 documented as of this encounter
[2024-07-21 14:30] VITALS: BP 135/89; PULSE 74; RESP 18; TEMP 36.6; O2SAT 97; BMI 30.7
--- NOTE | 2024-07-21 16:24 | ED_ITS ---
HPI - General Adult General Date Seen: 07/21/24 Chief complaint: Unspecified Complaint, Adult Stated complaint: Fell on corner of table hurts to inhale Time Seen by Provider: 07/21/24 15:58 History of Present Illness HPI narrative: 49-year-old gentleman presenting to the ER today with concern for rib injury. He has a past medical history of hypertension, type 2 diabetes, anxiety. He presents to the ER with chest injury and chest pain. He was getting up to get out of bed 3 days ago in the morning. He was trying to be quiet when leaving his bedroom but tripped over his 's phone charging cable. He fell forward and struck his right upper chest, superior to the right nipple, against the top corner of a hard plastic pack and play. He had immediate onset of pain but was able to get up and walk. He has been having pain with moving his right arm and with twisting his torso and with deep breathing ever since then. Pain is been getting worse. He has been trying to medicate his pain with taking ibuprofen 800 mg per dose and it is only marginally effective. He is not really short of breath but it does hurt to breathe and now. He is not coughing. No fever. He is not having any pain through the back. No right upper quadrant abdominal pain. He does not take any blood thinners. No history of heart or lung disease. Nonsmoker. He does take lisinopril for high blood pressure, medications for anxiety. Related Data Previous Rx's ?Medication ?Instructions ?Recorded blood sugar diagnostic (Blood #100 ea 01/05/24 Glucose Test strips) blood-glucose meter (Blood Glucose #1 ea 01/05/24 Monitoring kit) lancets (Accu-Chek Softclix #100 ea 01/05/24 Lancets) amlodipine 5 mg tablet 5 mg PO QDAY #90 tabs 02/03/24 sertraline 100 mg tablet 200 mg (2 x 100 mg) PO Q24H #180 04/19/24 tabs metformin 500 mg tablet,extended 500 mg PO QDAY #90 tabs 05/10/24 release 24 hr buspirone 10 mg tablet 10 mg PO BID #180 tabs 07/09/24 lisinopril 40 mg tablet 40 mg PO BID #180 tabs 07/09/24 potassium chloride 20 mEq 20 meq PO QDAY #30 tabs 07/09/24 tablet,extended release tirzepatide 7.5 mg/0.5 mL 7.5 mg (0.5 mL) subcut QWEEK #2 mL 07/09/24 subcutaneous pen injector (Juaquin) Allergies Allergy/AdvReac Type Severity Reaction Status Date / Time Penicillins AdvReac Verified 07/09/24 16:09 [facility] PFS Medical History (Updated 07/21/24 @ 17:31 by Fercho Oliva MD) Anxiety ?F41.9 - Anxiety disorder, unspecified (ICD-10) Lumbar transverse process fracture ?S32.009A - Unspecified fracture of unspecified lumbar vertebra, initial encounter for closed fracture (ICD-10) Type 2 diabetes mellitus ?E11.9 - Type 2 diabetes mellitus without complications (ICD-10) Family History (Updated 07/11/24 @ 12:31 by Trish Foster ~ CTA) Father High blood pressure Social History (Updated 07/11/24 @ 12:34 by Trish Foster ~ CTA) 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 Never smoked Exercises 4 days a week walking What is your current living situation?: I presently have a place to live Problems where you live: no known problems In the past 12 months, utilities in danger of being shut off: no In past 12 months, lack of transportation kept you from medical appts, meetings, work, or getting things needed for daily living: no In the past 12 mos, have been you worried that your food would run out before you had money to buy more?: never true In the past 12 mos, the food you bought just didn't last and you didn't have money to buy more?: never true Smoking Status: Never smoker Do you use any of these nicotine containing products: None Second hand tobacco smoke exposure: No How often do you have a drink containing alcohol: 2-4 times a month How often do you have six or more drinks on one occasion: Never AUDIT-C Alcohol total score: 2 Non-prescribed substance use: denies use How often does anyone, including family, friends and others, insult or talk down to you: never How often does anyone, including family, friends and others, threaten you with harm: never How often does anyone, including family, friends and others, scream or curse at you: never Exam Narrative: Exam Narrative: Primary Survey: A- patent. Speaking clearly. Phonation normal. No stridor. B- breathing easily. Lung sounds clear and equal. Oxygen saturation normal on room air C- no active bleeding. Blood pressure stable. Symmetric pulses and cap refill in 4 extremities. D- alert and oriented x3. GCS 15. No focal deficits. Constitutional: Appears well-developed and well-nourished. Alert. Conversant. Non toxic. HENT: Head: Atraumatic. Nose: Nose normal. Mouth/Throat: Oral mucosa is clear and moist. no trismus. Eyes: Conjunctivae normal. EOM normal. Pupils equal, round, and reactive to light. No scleral icterus. Neck: Normal range of motion. Neck supple. No tracheal deviation present. No JVD Cardiovascular: Normal rate, regular rhythm. No gallop. No friction rub. No murmur heard. Symmetric radial artery pulses Pulmonary/Chest: Effort normal. No stridor. No respiratory distress. No wheezes. No rales. No rhonchi . He has yellow-green bruising on the right upper chest over the pectoral muscle slightly superior and slightly medial to his right nipple. He is very tender to palpation there. No palpable crepitus. No subcutaneous emphysema. No posterior rib cage tenderness. No midline thoracic spine or lumbar spine tenderness. Abdominal: Soft. Bowel sounds normal. No distension. No mass. No tenderness. No right upper quadrant tenderness. No HSM. No CVA tenderness. No rebound. No guarding. Musculoskeletal: RUE: Normal range of motion. No tenderness. No deformity LUE: Normal range of motion. No tenderness. No deformity RLE: Normal range of motion. No edema. No tenderness. No deformity LLE: Normal range of motion. No edema. No tenderness. No deformity Lymph: No cervical adenopathy. Neurological: Alert and oriented to person, place, and time. Normal strength. CN II-VII intact. No sensory deficit. GCS eye subscore is 4. GCS verbal subscore is 5. GCS motor subscore is 6. Normal coordination Skin: Skin is warm and dry. No rash noted. No pallor. Normal capillary refill. Psychiatric: Normal mood. Normal affect. Const: Vital Signs, click to edit/add: Vital Signs - 24 hr 07/21/24 14:30 07/21/24 16:34 Temperature 97.8 F Pulse Rate [Pulse Oximeter] 74 Respiratory Rate 18 Respiratory Rate [ Right Chest] 16 Blood Pressure [Ri ght Upper Arm] 135/89 Pulse Oximetry 97 Oxygen Delivery Me thod Room Air Course Vital Signs Vital signs: Initial Vital Signs Temperature 97.8 F 07/21/24 14:30 Temperature Source Temporal Artery Scan 07/21/24 14:30 Pulse Rate 74 07/21/24 14:30 Respiratory Rate 18 07/21/24 14:30 Blood Pressure 135/89 07/21/24 14:30 Blood Pressure Mean 104 07/21/24 14:30 Blood Pressure Position Sitting 07/21/24 14:30 Pulse Oximetry 97 07/21/24 14:30 Oxygen Delivery Method Room Air 07/21/24 14:30 Vital Signs Temperature 97.8 F 07/21/24 14:30 Pulse Rate 74 07/21/24 14:30 Respiratory Rate 18 07/21/24 14:30 Blood Pressure 135/89 07/21/24 14:30 Pulse Oximetry 97 07/21/24 14:30 Oxygen Delivery Method Room Air 07/21/24 14:30 Temperature 97.8 F 07/21/24 14:30 Pulse Rate 74 07/21/24 14:30 Respiratory Rate 16 07/21/24 16:34 Blood Pressure 135/89 07/21/24 14:30 Pulse Oximetry 97 07/21/24 14:30 Oxygen Delivery Method Room Air 07/21/24 14:30 Medical Decision Making MDM Narrative Medical decision making narrative: This patient presents for evaluation after a injury to the right anterior upper chest. The patient has good breath sounds in all ortiz and no hypoxia or tachycardia. He does have bruising on the right chest wall/pectoral muscle and significant pain associated with deep breathing or twisting his torso. He is otherwise hemodynamically stable. no large hematoma or contusion or chest wall crepitus or flail segment. No right upper quadrant tenderness to suggest hepatic injury. No posterior tenderness. No deformity. Chest x-ray shows no rib fracture, pneumothorax, hemothorax, or pulmonary contusion. Clinically I have strong suspicion that he has 1 or 2 rib fractures in the right upper anterior chest. However I do not feel any definite crepitus to confirm the injury. Discussed sensitivity of plain films for fracture. He is not having any back pain, abdominal pain, flank pain, to raise concern for other injury such as hepatic, renal, spinal cord injury. With clear bruising and history of trauma inciting the pain I do not think he needs other workup for chest pain such as EKG, aortic CT chest, PE workup. With reasonable clinical certainty, I believe the patient is safe for discharge and can be safely managed as an outpatient. The patient was given return precautions and follow up instructions, they state understanding of these and ability to comply. Pain control as above. Discussed plans for pain management, outpatient follow-up, rest. Instymeds prescriptions for Percocet. Opiate precautions reviewed with the patient. Imaging Data Chest x-ray: Attestation: I have reviewed the pertinent imaging results. My impression: No visible not rib fracture. No hemothorax. No pneumothorax. No signs of pulmonary contusion. Radiologist's impression: Impression: 1. No acute cardiopulmonary process. Discharge Plan Discharge Clinical Impression: Acute traumatic injury of chest wall Patient Disposition: Home, Self-Care Condition: Stable Instructions: Rib Fracture (ED) Additional Instructions: As we discussed, your x-ray looks good. We do not see any sign of a broken rib, collapsed lung, or other serious injury. However, I suspect that you do have a broken rib, even though we cannot see it on the x-ray. To manage the pain from your broken rib you can use Tylenol or ibuprofen. Use the prescription pain killer Percocet if needed for pain uncontrolled by your other medications Seizure did take deep breaths 3-4 times per day to help fully inflate your lungs and prevent the development of pneumonia If you have worsening pain, trouble breathing, lightheadedness or fainting, or any concerns, please come back to the ER right away. Usually will take a few weeks for broken ribs to heal. It is okay to do light activities but avoid strenuous activity, heavy lifting, or dangerous activities until your ribs are improved. Prescriptions: No Action amlodipine 5 mg tablet 5 mg PO QDAY Qty: 90 4RF buspirone 10 mg tablet 10 mg PO BID Qty: 180 1RF Mounjaro 7.5 mg/0.5 mL pen injector 7.5 mg subcut QWEEK Qty: 2 1RF lisinopril 40 mg tablet 40 mg PO BID Qty: 180 0RF potassium chloride 20 mEq tablet extended release 20 meq PO QDAY Qty: 30 2RF (DME) Blood Glucose Test Strip See Rx Instructions .ROUTE .MEDSUPPLY Qty: 100 2RF Rx Instructions: bid (DME) blood-glucose meter [Blood Glucose Monitoring] Kit See Rx Instructions .ROUTE .MEDSUPPLY Qty: 1 0RF Rx Instructions: As directed (DME) lancets [Accu-Chek Softclix Lancets] Misc See Rx Instructions .Route Qty: 100 12RF Rx Instructions: bid sertraline 100 mg tablet 200 mg PO Q24H Qty: 180 1RF metformin 500 mg tablet extended release 24 hr 500 mg PO QDAY Qty: 90 0RF Follow Up/Referrals: Sergio Doty MD [Primary Care Provider] - Stand Alone Forms: [employer] Info Instructions
[2024-07-21 16:34] VITALS: RESP 16
--- NOTE | 2024-07-21 16:35 | CRLHL7_ITS ---
For Patients: As a result of the Cures Act, medical imaging exams and procedure reports are released immediately into your electronic medical record. You may view this report before your referring provider. If you have questions, please contact your health care provider. Indication: Fall. Blunt trauma. Technique: Frontal and lateral chest radiographs. Comparison: None. Findings: Lungs are clear. No consolidation, effusion or pneumothorax. Cardiomediastinal silhouette is within normal limits. No significant osseous or soft tissue findings. Impression: 1. No acute cardiopulmonary process. Dictated by Agus Posadas MD @ 07/21/2024 5:06:54 PM (Electronically Signed)
--- OUTSIDE RECORDS SUMMARY | 2024-07-21 16:50 | XMS_ITS | Referral Summary ---
Author Organization [facility] Address [address] [place] [address] Care Team Providers Care Carton Marker Machine Name Role Phone None, Md Unavailable Unavailable [...] for Pain. 30 tablet 07/25/2017 4:43 PM LINUX UNIX ADMINISTRATOR 07/25/2017 Active ondansetron (ZOFRAN) 4 mg oral ODT Take 1 tablet (4 mg) by mouth every 8 (eight) hours as needed for Nausea. 20 tablet 07/25/2017 4:44 PM LINUX UNIX ADMINISTRATOR 07/25/2017 Active Social History Tobacco Use Types Packs/Day Years Used Date Smoking Tobacco: Never Smokeless Tobacco: Former Sex and Gender Information Value Date Recorded Sex Assigned at Not on file Legal Sex Male 9:58 AM LINUX UNIX ADMINISTRATOR Gender Identity Not on file Sexual Orientation Not on file Last Filed Vital Signs Vital Sign Reading Time Taken Comments Blood Pressure 140/99 07/25/2017 5:00 PM LINUX UNIX ADMINISTRATOR Pulse 69 07/25/2017 5:00 PM LINUX UNIX ADMINISTRATOR Temperature 36.4 C (97.5 F) 07/25/2017 5:00 PM LINUX UNIX ADMINISTRATOR Respiratory Rate 16 07/25/2017 5:00 PM LINUX UNIX ADMINISTRATOR Oxygen Saturation 96% 07/25/2017 5:00 PM LINUX UNIX ADMINISTRATOR Inhaled Oxygen Concentration - - Weight 109.8 kg (242 lb) 07/19/2017 12:27 PM LINUX UNIX ADMINISTRATOR Height 188 cm (6' 2) 07/19/2017 12:27 PM LINUX UNIX ADMINISTRATOR Body Mass Index 31.07 07/19/2017 12:27 PM LINUX UNIX ADMINISTRATOR Plan of Treatment Not on file Medical Devices Implanted Type Area Consumer Studies Professor Device Identifier Shelf Expiration Date Model / Serial / Lot Suture Cleves, Biocomposite Suturetak Implanted:Qty: 4 on 07/25/2017 by Gamal Aguayo MD [place] [facility] Screw/An chor Left: Shoulder [employer] 03/29/2018 [id number] T / / [id number] Insurance [employer] OPEN ACCESS/CHOICE [facility] BESSIE [id number] GENERIC Care Teams Carton Marker Machine Relationship Specialty Start Date End Date NoneMd PCP - Primary Care Clinic 07/25/17
--- OUTSIDE RECORDS SUMMARY | 2024-07-21 16:50 | XMS_ITS | Encounter Summary ---
Author Organization [facility] Address [address] [place] [address] Care Team Providers Care Concrete Crusher Loader Operator Name Role Phone Justine Sylvester PA-C Primary Care Pr ovider Justine Sylvester PA-C Unavailable Eron Sarmiento MD Primary Care Provider [phone] Eron Sarmiento MD Unavailable [phone] Justine Sylvester PA-C Unavailable Eron Sarmiento MD Unavailable [phone] Eron Sarmiento MD Unavailable [phone] Kamar Valente MD Unavailable [phone] Mike Crabtree MD Primary Care Provider + Justine Sylvester PA-C Unavailable Kamar Valente MD Unavailable [phone] TrylizzettetaEron stallings MD Unavailable Lalo Wiley MD Primary Care Provider Chiquita Oates MD Unavailable [phone] Encounter Details Date Type Department Care Team (Late st Contact Info) Description 05/07/2018 MyC Medical Advice [facility] [id number] [place] [phone] Justine Sylvester PA-C [address] [place] [address] Social History Tobacco Use Types Packs/Day Years Used Date Smoking Tobacco: Never Smokeless Tobacco: Former Snuff Quit: 06/13/2009 Alcohol Use Standard Drinks/Week Comments Yes 0 (1 standard drink = 0.6 oz pur e alcohol) socially PHQ-2 Answer Date Recorded PHQ-2 Score 0 03/27/2018 Sex and Gender Information Value Date Recorded Sex Assigned at Not on file Legal Sex Male 3:34 AM COTTON CLASSER AIDE Gender Identity Not on file Sexual Orientation Not on file Occupation Industry Job Start Date Job End Date Not on file Not on file Not on file Not on file documented as of this encounter Miscellaneous Notes * Telephone Encounter - Lizy Mai RN - 05/07/2018 3:17 AM COTTON CLASSER AIDE Advised E-visit to discuss symptoms/concerns with PCP. Lizy Mai RN -- 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 12/11/2021 documented as of this encounter Care Teams Concrete Crusher Loader Operator Relationship Specialty Start Date End Date Justine Sylvester PA-C [address] [place], [place] [id number] PCP - General Physician Gas Engine Performance Engineer 11/02/13 07/06/18 Justine Sylvester PA-C [address] [place] [address] PCP - Assigned PCP 11/18/13 07/01/18 [place] [address] [place] [address] PCP - General Family Practice 07/07/18 09/17/19 Eron Sarmiento MD [address] [place] [address] PCP - Assigned PCP 07/02/18 08/01/18 Mike Crabtree MD [address] [place] [address] PCP - General Family Practice 09/18/19 12/07/21 Lalo Wiley MD [facility] [address] [place] [address] PCP - General Family Medicine 12/08/21 Justine Sylvester PA-C [address] [place] [address] Assigned PCP 11/18/13 07/01/18 Eron Sarmiento MD [address] [place] [address] Assigned PCP 07/02/18 07/29/18 Eron Sarmiento MD [address] [place] [address] Assigned PCP 07/30/18 07/14/19 Kamar Valente MD [address] [place] [phone] Assigned PCP 07/15/19 12/29/19 Justine Sylvester PA-C [address] [place] [address] Assigned PCP 12/30/19 03/08/20 Kamar Valente MD [address] [place] [phone] Assigned PCP 03/09/20 11/01/20 Eron Sarmiento MD [address] [facility] [address] Assigned PCP 11/02/20 01/01/22 Chiquita Oates MD SURGICAL CONSULTS, AGNIESZKA Rosen E ZITA TEAG[address] [address] Assigned Surgical Provider 12/26/21 06/22/23 documented as of this encounter
--- OUTSIDE RECORDS SUMMARY | 2024-07-21 16:50 | XMS_ITS | Clinical Summary ---
Author Organization [facility] Address [address], [place] [address] Care Team Providers Care Product Evangelist Name Role Phone Lalo Wiley MD Primary Care Provider [phone] Source Comments You are receiving this document as you are listed as the primary care provider,follow-up provider, or the patient has been referred to you for consultation.This is in compliance with the Medicare andThe [facility] Cent[facility]act EHR Incentive Program,which states Providers who transition their patient to another setting of careor provider of care or refers their patient to another provider of care shouldprovide summary care record for each transition of care or referral. Depop Allergies Active Allergy Reactions Criticality Noted Date [...] Care Team Description 06/06/[address] [place] [address] V[facility] Surgery [address] [place] [address] [place] Jackson Dx Accuracy c Gap Registry Call 1 from Last 3 Months Immunizations Immunization Administration Dates Next Due DT Ped 01/12/1991 Flu Vac (3+ yrs) 02/26/2017,04/14/2012, 1 Fluzone Qiv Multidose Vial 0 .25 (6-35 Mos) 05/12/2019,03/03/2019,03/14/2015 Influenza IIV4 (Quadrivalent ) 0.5mL (67[address]) 05/29/2018,02/26/2017,03/06/2014,2012 MMR 12/20/1989 Td 01/06/1998 Tdap 03/11/2021,2010 [...] - 199 mg/dL 03/11/2021 4:59 PM CDT [facility] Triglyceride 322(H) <=149 mg/dL 03/11/2021 4:59 PM CDT [facility] HDL Cholesterol 42 >=40 mg/dL 03/11/2021 4:59 PM CDT [facility] LDL, Calculated 83 <130 mg/dL 03/11/2021 4:59 PM CDT [facility] Non HDL Chol, Calculated 147 <=159 mg/dL 03/11/2021 4:59 PM CDT [facility] Cholesterol/HDL Ratio 4.5 03/11/2021 4:59 PM CDT [facility] Hours Fasting Unknown 03/11/2021 4:59 PM T [facility] Blood Venipuncture / Unknown 03/11/2021 3:39 PM CDT 03/11/2021 3:39 PM CDT us Lalo Wiley MD LAB_1 Final Resu lt [facility] [address] [place] [address], [facility] [phone] from Last 3 Months or Most Recently Relevant to Health Maintenance Additional Health Concerns Infection Onset Date Last Indicated MRSA Comment: 12/09/21 wound (+) 12/09/2021 12/09/2021 Insurance [employer] FULLY INSURED FULLY INSURED BCBS [employer] BLUE LINK [employer] F[employer] INSURED Care Teams Product Evangelist Relationship Specialty [place] [address] [place] [address] PCP - General Family Practice 11/08/19
--- OUTSIDE RECORDS SUMMARY | 2024-07-21 16:50 | XMS_ITS | Clinical Summary ---
Author Organization [facility] Address [address] [place] [address] Care Team Providers Care Drying Tumbler Operator Name Role Phone None, Md Unavailable Unavailable [...] for Pain. 30 tablet 07/25/2017 4:43 PM SHIP RIGGER APPRENTICE 07/25/2017 Active ondansetron (ZOFRAN) 4 mg oral ODT Take 1 tablet (4 mg) by mouth every 8 (eight) hours as needed for Nausea. 20 tablet 07/25/2017 4:44 PM SHIP RIGGER APPRENTICE 07/25/2017 Active Social History Tobacco Use Types Packs/Day Years Used Date Smoking Tobacco: Never Smokeless Tobacco: Former Sex and Gender Information Value Date Recorded Sex Assigned at Not on file Legal Sex Male 9:58 AM SHIP RIGGER APPRENTICE Gender Identity Not on file Sexual Orientation Not on file Last Filed Vital Signs Vital Sign Reading Time Taken Comments Blood Pressure 140/99 07/25/2017 5:00 PM SHIP RIGGER APPRENTICE Pulse 69 07/25/2017 5:00 PM SHIP RIGGER APPRENTICE Temperature 36.4 C (97.5 F) 07/25/2017 5:00 PM SHIP RIGGER APPRENTICE Respiratory Rate 16 07/25/2017 5:00 PM SHIP RIGGER APPRENTICE Oxygen Saturation 96% 07/25/2017 5:00 PM SHIP RIGGER APPRENTICE Inhaled Oxygen Concentration - - Weight 109.8 kg (242 lb) 07/19/2017 12:27 PM SHIP RIGGER APPRENTICE Height 188 cm (6' 2) 07/19/2017 12:27 PM SHIP RIGGER APPRENTICE Body Mass Index 31.07 07/19/2017 12:27 PM SHIP RIGGER APPRENTICE Plan of Treatment Health Maintenance Due Date [...] this topic Medical Devices Implanted Type Area First Aid Director Device Identifier Shelf Expiration Date Model / Serial / Lot Suture Bevier, Biocomposite Suturetak Implanted:Qty: 4 on 07/25/2017 by Gamal Aguayo MD at [facility] [place] [facility] Screw/An chor Left: Shoulder [employer] 03/29/2018 [id number] T / / [id number] Insurance [employer] OPEN ACCESS/CHOICE GENERIC Care Teams Drying Tumbler Operator Relationship Specialty Start Date End Date Md Catherine PCP - Primary Care Clinic 07/25/17
--- OUTSIDE RECORDS SUMMARY | 2024-07-21 16:50 | XMS_ITS | Encounter Summary ---
Author Organization [facility] Address [address] [place] [address]. [place] [address] Care Team Providers Care Marriage Counselor Name Role Phone Eron Sarmiento MD Primary Care Provider [phone] Eron Sarmiento MD Unavailable [phone] Kamar Valente MD Unavailable [phone] Mike Crabtree MD Primary Care Provider + Justine Sylvester PA-C Unavailable Kamar Valente MD Unavailable [phone] TrygsEron venegas MD Unavailable [phone] Lalo Wiley MD Primary Care Provider + [phone] Chiquita Oates MD Unavailable +[phone] Reason for Visit * Reason Comments Medication Refill Encounter Details Date Type Department Care Team (Late st Contact Info) Description [facility]/24/2018 [facility] [address] [address] Eron Sarmiento MD [address] [place] [address] Medication Refill Social History Tobacco Use Types Packs/Day Years Used Date Smoking Tobacco: Never Smokeless Tobacco: Former Snuff Quit: 06/13/2009 Alcohol Use Standard Drinks/Week Comments Yes 0 (1 standard drink = 0.6 oz pur e alcohol) socially PHQ-2 Answer Date Recorded PHQ-2 Score 0 03/27/2018 Sex and Gender Information Value Date Recorded Sex Assigned at Not on file Legal Sex Male 3:34 AM FINISH REPAIR WORKER Gender Identity Not on file Sexual Orientation [...] Total Score: 4 05/29/20 18 3:20 PM FINISH REPAIR WORKER documented as of this encounter Care Teams Marriage Counselor Relationship Specialty Start Date End Date Eron Sarmiento MD PCP - General Family Practice 07/07/18 09/17/19 Mike Crabtree MD [address] [address] PCP - General Family Practice 09/18/19 12/07/21 Lalo Wiley MD [facility] [address] [place] [address] [place] [address] PCP - General Family Medicine 12/08/21 Eron Sarmiento MD [address] [place] [address] Assigned PCP 07/30/18 07/14/19 Kamar Valente MD [address] [address] Assigned PCP 07/15/19 12/29/19 Justine Sylvester PA-C [address] [place] [address] Assigned PCP 12/30/19 03/08/20 Kamar Valente MD [address] [place] [address] Assigned PCP 03/09/20 11/01/20 Eron Sarmiento MD [address] [place] [address] Assigned PCP 11/02/20 01/01/22 Chiquita Oates MD [facility], [facility] [address] [facility] [address] [place] [address] Assigned Surgical Provider 12/26/21 documented as of this encounter
--- OUTSIDE RECORDS SUMMARY | 2024-07-21 16:50 | XMS_ITS | Encounter Summary ---
Author Organization [facility] Address [address] [address] Care Team Providers Care Automotive Parts Interpreter Name Role Phone Lalo Wiley MD Primary Care Provider [phone] Reason for Visit * Reason Comments Dx Accuracy Hrc Gap Registry Call 1 Encounter Details Date Type Department Care Team (Late st Contact Info) Description 06/06/2024 Telephone [facility] [address] Vascular Surgery [address] [place] [address] [place] Jackson Dx Accuracy Hrc [...] registry. Outcome of the call:1st Call Attempt Y PLAN SALESPERSON documented in this encounter Plan of Treatment Not on file documented as of this encounter Visit Diagnoses Not on filedocumented in this encounter Additional Health Concerns Infection Onset Date Last Indicated Resolved Time MRSA Comment: 12/09/21 wound (+) 12/09/2021 12/09/2021 documented as of this encounter Care Teams Automotive Parts Interpreter Relationship Specialty [place] [address] [address] PCP - General Family Practice 11/08/19 documented as of this encounter
--- OUTSIDE RECORDS SUMMARY | 2024-07-21 16:50 | XMS_ITS | Clinical Summary ---
Author Organization [facility] Address [address] [place] [address] Care Team Providers Care Professional Bass Fisherman Name Role Phone Lalo Wiley MD Primary Care Provider [phone] Allergies Active Allergy Reactions Criticality Noted Date [...] on file Legal Sex Male 3:34 AM ADULT PSYCHIATRIST Gender Identity Not on file Sexual Orientation [...] BEAKER POCT Final Result RH LABORATORY POC [facility] Acute Care Lab [address] Lab (1st floor, no room number) [place] [address], [facility] [phone] * (ABNORMAL) Basic metabolic panel (12/13/2021 6:57 AM CDT) Pathologist [facility] Sodium 138 133 - 144 mmol/L 12/13/2021 [...] and gender (Gonzalo et al., NEJM, DOI: 10.1056/[id number]) Blood STRUCTURE OF LEFT UPPER LIMB / Unknown Venipuncture / Unknown 12/13/2021 6:57 AM CDT 12/13/2021 7:24 AM CDT us Yasemin White PA-C LAB - BLOOD ORDERABL ES Final Result [facility] Acute Care Lab [address] Lab (1st floor, no room number) [place] [address], [facility] [phone] * HIV Screening (03/27/2018 2:19 PM CDT) HIV Antigen Antibody Combo Nonreactive NR^Nonrea ctive 03/29/2018 8:57 AM CDT [facility] Comment:HIV-1 p24 Ag & HIV-1 /HIV-2 Ab Not Detected Blood specimen (specimen) 03/27/2018 2:19 PM CDT 03/27/2018 2:20 PM CDT us Eron Sarmiento MD LAB - BLOOD ORDERABLES Final Result [facility] [address] [place], [place] [address] [place] [address] * (ABNORMAL) Lipid Profile (Chol, Trig, HDL, LDL calc) (03/27/2018 2:19 PM CDT) Cholesterol 160 <200 mg/dL 03/28/2018 1:54 PM CDT [facility] Triglycerides 158(H) <150 mg/dL 03/28/2018 1:54 PM CDT [facility] Comment: Borderline high: 150-199 mg/dl High: 200-499 mg/dl Very high: >499 mg/dl Fasting specimen HDL Cholesterol 46 >39 mg/dL 8 1:54 PM CDT [facility] LDL Cholesterol Calculated 82 <100 mg/dL 03/28/2018 1:54 PM CDT [facility] Comment:Desirable: <100 mg/d l Non HDL Cholesterol 114 <130 mg/dL 03/28/2018 1:54 PM CDT [facility] Blood specimen (specimen) 03/27/2018 2:19 PM CDT 03/27/2018 2:20 PM CDT us Eron Sarmiento MD LAB - BLOOD ORDERABLES Final Result [facility] [address] [place] [address] * Albumin Random Urine Quantitative (01/03/2017 3:15 PM CDT) Creatinine Urine 173 mg/dL [facility] Albumin Urine mg/L 7 mg/L [facility] Albumin Urine mg/g Cr 4.19 0 - 17 mg/g Cr [facility] Urine specimen (specimen) 01/03/2017 3:15 PM CDT 01/03/2017 3:20 PM CDT us Justine Sylvester PA-C LAB - URINE ORDE RABLES Final Result [facility] [address] [address], [facility] [phone] from Last 3 Months or Most Recently Relevant to Health Maintenance Additional Health Concerns Infection Onset Date Last Indicated 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 12/11/2021 Insurance [employer] [place] [facility] [place] [facility] Advance Directives For more information, please contact: [phone] * Full Code (Latest Code Status on File) Date Activated Date Inactivated Comments 12/10/2021 6:49 PM 12/13/2021 5:19 PM All basic an d advanced life-sustaining interventions are performed as appropriate Question Answer Comments Code status determined by: Discussion with curly nt/ legal decision maker Care Teams Professional Bass Fisherman Relationship Specialty Start Date End Date Lalo Wiley MD [facility] [address] [place] [address] [place] [address] PCP - General Family Medicine 12/08/21
--- OUTSIDE RECORDS SUMMARY | 2024-07-21 16:50 | XMS_ITS | Encounter Summary ---
Author Organization [facility] Address [address] [place] [address] Care Team Providers Care Handle And Vent Machine Operator Name Role Phone Eron Sarmiento MD Primary Care Provider + [phone] Eron Sarmiento MD Unavailable [phone] Kamar Valente MD Unavailable [phone] Mike Crabtree MD Primary Care Provider + Justine Sylvester PA-C Unavailable Kamar Valente MD Unavailable [phone] TrygsEron venegas MD Unavailable [phone] Lalo Wiley MD Primary Care Provider + [phone] Chiquita Oates MD Unavailable +[phone] Reason for Visit * Reason Comments Medication Refill sertraline (ZOLOFT Encounter Details Date Type Department Care Team (Late st Contact Info) Description 11/10/[address] [address] Eron Sarmiento MD [address] [place] [address] Medication Refill (sertraline (ZOLOFT) Social History Tobacco [...] on file Legal Sex Male 3:34 AM REPAIRER RECREATIONAL VEHICLE Gender Identity Not on file Sexual Orientation [...] Total Score: 4 05/29/20 18 3:20 PM REPAIRER RECREATIONAL VEHICLE documented as of this encounter Care Teams Handle And Vent Machine Operator Relationship Specialty Start Date End Date Eron Sarmiento MD PCP - General Family Practice 07/07/18 09/17/19 Mike Crabtree MD [address] [address] PCP - General Family Practice 09/18/19 12/07/21 Lalo Wiley MD [facility] [address] [place] [address] [place] [address] PCP - General Family Medicine 12/08/21 Eron Sarmiento MD [address] [place] [address] Assigned PCP 07/30/18 07/14/19 Kamar Valente MD [address] [place] [phone] Assigned PCP 07/15/19 12/29/19 Justine Sylvester PA-C [address] [place] [address] Assigned PCP 12/30/19 03/08/20 Kamar Valetne MD [address] [place] [place] [address] Assigned PCP 03/09/20 11/01/20 Eron Sarmiento MD [address] [place] [place] [address] Assigned PCP 11/02/20 01/01/22 Chiquita Oates MD [facility] [address] [address] Assigned Surgical Provider 12/26/21 documented as of this encounter
--- OUTSIDE RECORDS SUMMARY | 2024-07-21 16:50 | XMS_ITS | Encounter Summary ---
Author Organization [facility] Address [address] [place] [address] Care Team Providers Care Sidewalk Inspector Name Role Phone Eron Sarmiento MD Primary Care Provider [phone] Eron Sarmiento MD Unavailable [phone] Kamar Valente MD Unavailable [phone] Mike Crabtree MD Primary Care Provider + Justine Sylvester PA-C Unavailable Kamar Valente MD Unavailable +[phone] TryEron kurtz MD Unavailable [phone] Lalo Wiley MD Primary Care Provider + [phone] Chiquita Oates MD Unavailable +[phone] Encounter Details Date Type Department Care Team (Late st Contact Info) Description 12/28/2018 MyC Medical Advice [facility] [id number] [place] [address] Eron Sarmiento MD [address] [place] [address] Social History Tobacco Use Types Packs/Day Years Used Date Smoking Tobacco: Never Smokeless Tobacco: Former Snuff Quit: 06/13/2009 Alcohol Use Standard Drinks/Week Comments Yes 0 (1 standard drink = 0.6 oz pur e alcohol) socially PHQ-2 Answer Date Recorded PHQ-2 Score 0 03/27/2018 Sex and Gender Information Value Date Recorded Sex Assigned at Not on file Legal Sex Male 3:34 AM MANAGER MANAGING Gender Identity Not on file Sexual Orientation [...] Total Score: 4 05/29/20 18 3:20 PM MANAGER MANAGING documented as of this encounter Care Teams Sidewalk Inspector Relationship Specialty Start Date End Date Eron Sarmiento MD PCP - General Family Practice 07/07/18 09/17/19 Mike Crabtree MD [address] [address] PCP - General Family Practice 09/18/19 12/07/21 Laol Wiley MD [facility] [address] [place] [address] [place] [address] PCP - General Family Medicine 12/08/21 Eron Sarmiento MD [address] [place] [address] Assigned PCP 07/30/18 07/14/19 Kamar Valente MD [address] [address] Assigned PCP 07/15/19 12/29/19 Justine Sylvester PA-C [address] [place] [address] Assigned PCP 12/30/19 03/08/20 Kamar Valente MD [address] [place] [address] Assigned PCP 03/09/20 11/01/20 Eron Sarmiento MD [address] [place] [address] Assigned PCP 11/02/20 01/01/22 Chqiuita Oates MD [facility] [address] [place] [address] Assigned Surgical Provider 12/26/21 documented as of this encounter
--- OUTSIDE RECORDS SUMMARY | 2024-07-21 16:50 | XMS_ITS | Encounter Summary ---
Author Organization [facility] Address [address] [place] [address] Care Team Providers Care Food Mixer Name Role Phone Doctor, None Primary Care Provider Unavailabl Tristin Booker MD Primary Care Provider Justine Sylvester PA-C Primary Care Pr ovider Justine Sylvester PA-C Unavailable Eron Sarmiento MD Primary Care Provider Eron Sarmiento MD Unavailable Justine Sylvester PA-C Unavailable Eron Sarmiento MD Unavailable [phone] Eron Sarmiento MD Unavailable Kamar Valente MD Unavailable [phone] Mike Crabtree MD Primary Care Provider + Justine Sylvester PA-C Unavailable Kamar Valente MD Unavailable [phone] Eron Sarmiento MD Unavailable Lalo Wiley MD Primary Care Provider Chiquita Oates MD Unavailable Encounter Details Date Type Department Care Team (Late st Contact Info) Description 03/29/2010 MyC Medical Advice [facility] [address] [place] [phone] Tristin De La Fuente MD [address] [place] [phone] Social History Tobacco Use Types Packs/Day Years Used Date Smoking Tobacco: Never Alcohol Use Standard Drinks/Week Comments Yes 0 (1 standard drink = 0.6 oz pur e alcohol) socially Sex and Gender Information Value Date Recorded Sex Assigned at Not on file Legal Sex Male 3:34 AM MUSIC ASSISTANT Gender Identity Not on file Sexual Orientation [...] documented as of this encounter Care Teams Food Mixer Relationship Specialty Start Date End Date Doctor, Catherine, PCP - General 07/14/01 10/02/10 Tristin De La Fuente MD PCP - General Family Practice 10/03/10 11/01/13 Justine Sylvester PA-C [address] [place] [address] PCP - General Physician Rug Cleaning Supervisor 11/02/13 07/06/18 Justine Sylvester PA-C [address] [place] [address] PCP - Assigned PCP 11/18/13 07/01/18 [place] [address] [place] [address] PCP - General Family Practice 07/07/18 09/17/19 Eron Sarmiento MD [address] [place] [address] PCP - Assigned PCP 07/02/18 08/01/18 Mike Crabtree MD [address] [address] PCP - General Family Practice 09/18/19 12/07/21 Lalo Wiley MD [facility] [address] [place] [address] PCP - General Family Medicine 12/08/21 Justine Sylvester PA-C [address] [place] [address] Assigned PCP 11/18/13 07/01/18 Eron Sarmiento MD [address] [place] [address] Assigned PCP 07/02/18 07/29/18 Eron Sarmiento MD [address] [place] [address] Assigned PCP 07/30/18 07/14/19 Kamar Valente MD [address] [phone] Assigned PCP 07/15/19 12/29/19 Justine Sylvester PA-C [address] [place] [address] Assigned PCP 12/30/19 03/08/20 Kamar Valente MD [address] [place] [phone] Assigned PCP 03/09/20 11/01/20 Eron Sarmiento MD [address] [place] [address] Assigned PCP 11/02/20 01/01/22 Chiquita Oates MD [facility], [facility] [address] [place] [address] Assigned Surgical Provider 12/26/21 06/22/23 documented as of this encounter
--- OUTSIDE RECORDS SUMMARY | 2024-07-21 16:50 | XMS_ITS | Encounter Summary ---
Author Organization [facility] Address [address] [place] [address] Care Team Providers Care Prior Authorization Technician Name Role Phone Justine Sylvester PA-C Primary Care Pr ovider Justine Sylvester PA-C Unavailable Eron Sarmiento MD Primary Care Provider Eron Sarmiento MD Unavailable [phone] Justine Sylvester PA-C Unavailable Eron Sarmiento MD Unavailable [phone] Eron Sarmiento MD Unavailable [phone] Kamar Valente MD Unavailable [phone] Mike Crabtree MD Primary Care Provider + Justine Sylvester PA-C Unavailable Kamar Valente MD Unavailable + [phone] TrylizzettetaEron stallings MD Unavailable Lalo Wiley MD Primary Care Provider Chiquita Oates MD Unavailable [phone] Encounter Details Date Type Department Care Team (Late st Contact Info) Description 05/10/2018 MyC Medical Advice [facility] [address] [place] [address] Michelle Hurtado APRN PHLEBOTOMIST ASSOCIATE [address] [place] [address] [address] [address] Social History Tobacco Use Types Packs/Day Years Used Date Smoking Tobacco: Never Smokeless Tobacco: Former Snuff Quit: 06/13/2009 Alcohol Use Standard Drinks/Week Comments Yes 0 (1 standard drink = 0.6 oz pur e alcohol) socially PHQ-2 Answer Date Recorded PHQ-2 Score 0 03/27/2018 Sex and Gender Information Value Date Recorded Sex Assigned at Not on file 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 Gender Identity Not on file Sexual Orientation [...] documented as of this encounter Care Teams Prior Authorization Technician Relationship Specialty Start Date End Date Justine Sylvester PA-C [address] [place] [address] PCP - General Physician Massage Therapy Instructor 11/02/13 07/06/18 Justine Sylvester PA-C [address] [place] [address] PCP - Assigned PCP 11/18/13 07/01/18 [place] [address] [place] [address] PCP - General Family Practice 07/07/18 09/17/19 Eron Sarmiento MD [address] [place] [address] PCP - Assigned PCP 07/02/18 08/01/18 Mike Crabtree MD [address] [place] [address] PCP - General Family Practice 09/18/19 12/07/21 Lalo Wiley MD [facility] [address] [place] [address] PCP - General Family Medicine 12/08/21 Justine Sylvester PA-C [address] [place] [address] Assigned PCP 11/18/13 07/01/18 Eron Sarmiento MD [address] [place] [address] Assigned PCP 07/02/18 07/29/18 Eron Sarmiento MD [address] [place] [address] Assigned PCP 07/30/18 07/14/19 Kamar Valente MD [address] [phone] Assigned PCP 07/15/19 12/29/19 Justine Sylvester PA-C [address] [place] [address] Assigned PCP 12/30/19 03/08/20 Kamar Valente MD [address] [place] [address] Assigned PCP 03/09/20 11/01/20 Eron Sarmiento MD [address] [facility] [place] [address] Assigned PCP 11/02/20 01/01/22 Chiquita Oates MD [facility] [address] [place] [address] Assigned Surgical Provider 12/26/21 06/22/23 documented as of this encounter
--- OUTSIDE RECORDS SUMMARY | 2024-07-21 16:50 | XMS_ITS | Encounter Summary ---
Author Organization [facility] Address [address] [place] [address] Care Team Providers Care Solution Maker Name Role Phone Justine Sylvester PA-C Primary Care Pr ovider Justine Sylvester PA-C Unavailable Eron Sarmiento MD Primary Care Provider Eron Sarmiento MD Unavailable [phone] Justine Sylvester PA-C Unavailable Eron Sarmiento MD Unavailable [phone] Eron Sarmiento MD Unavailable [phone] Kamar Valente MD Unavailable +[phone] Mike Crabtree MD Primary Care Provider + Justine Sylvester PA-C Unavailable Kamar Valente MD Unavailable + [phone] TrylizzettetaEron stallings MD Unavailable Lalo Wiley MD Primary Care Provider Chiquita Oates MD Unavailable [phone] Encounter Details Date Type Department Care Team (Late st Contact Info) Description 01/03/[address] 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 Gender Identity Not on file Sexual Orientation [...] documented as of this encounter Care Teams Solution Maker Relationship Specialty Start Date End Date Justine Sylvester PA-C [address] [place] [address] PCP - General Physician Painter And Body Mechanic Apprentice 11/02/13 07/06/18 Justine Sylvester PA-C [address] [place] [address] PCP - Assigned PCP 11/18/13 07/01/18 [place] [address] [place] [address] PCP - General Family Practice 07/07/18 09/17/19 Eron Sarmiento MD [address] [place] [address] PCP - Assigned PCP 07/02/18 08/01/18 Mike Crabtree MD [address] [place] [address] PCP - General Family Practice 09/18/19 12/07/21 Lalo Wiley MD [facility] [address] [place] [address] PCP - General Family Medicine 12/08/21 Justine Sylvester PA-C [address] [place] [address] Assigned PCP 11/18/13 07/01/18 Eron Sarmiento MD [address] [place] [address] Assigned PCP 07/02/18 07/29/18 Eron Sarmiento MD [address] [place] [address] Assigned PCP 07/30/18 07/14/19 Kamar Valente MD [address] [phone] Assigned PCP 07/15/19 12/29/19 Justine Sylvester PA-C [address] [place] [id number] Assigned PCP 12/30/19 03/08/20 Kamar Valente MD [address] [place] [address] Assigned PCP 03/09/20 11/01/20 Eron Sarmiento MD [address] [place] [place] [address] Assigned PCP 11/02/20 01/01/22 Chiquita Oates MD [facility] [address] [place] [address] Assigned Surgical Provider 12/26/21 06/22/23 documented as of this encounter
== END 2024-07-21 17:43 | disposition home or self-care (01) ==
PROVIDERS: Emergency Provider Emergency Medicine; PCP Family Medicine
DX: S29.9XXA Unspecified injury of thorax, initial encounter (principal); W18.09XA Striking against other object with subsequent fall, initial encounter
CPT/HCPCS: 71046; 99283

== ENCOUNTER 2024-12-31 09:47 | Outpatient (CLI) | payer OTHER, SELFPAY | END 2024-12-31 09:48 | disposition home or self-care (01) | LOC: NFLDREF 01-02 15:42 | PROVIDERS: PCP Family Medicine; Referring Provider Family Medicine; Visit Provider Family Medicine | DX: E11.9 Type 2 diabetes mellitus without complications (principal); I10 Essential (primary) hypertension; R68.82 Decreased libido; R53.83 Other fatigue; Z79.899 Other long term (current) drug therapy | CPT/HCPCS: 80053; 80061; 82607; 84270; 84402; 84403; 84443 ==